=== PATIENT | male | born 1985 | race Caucasian/White ===

== ENCOUNTER 2017-05-06 15:10 | Emergency (ER) | payer MEDICAID, SELFPAY ==
[2017-05-06 15:11] VITALS: BP 155/77; PULSE 100; RESP 15; TEMP 37.2; O2SAT 99; BMI 37.5
[2017-05-06] MEDS: 0.9% Normal Saline 1,000 ML 999 ML IV (15:57)
[2017-05-06 15:58] VITALS: O2SAT 97
[2017-05-06] MEDS: Ketorolac 30 MG/ML Syringe IV (16:04)
[2017-05-06] MEDS: Benzonatate 100 MG Capsule 200 MG PO (16:04)
--- NOTE | 2017-05-06 16:05 | RAD_ITS ---
STUDY: X-RAY CHEST REASON FOR EXAM: Male, 32 years old. Cough. TECHNIQUE: PA and lateral views of the chest. COMPARISON: March 09, 2013. FINDINGS: Telemetry wires overlie the chest. The lungs are clear and expanded. There is no demonstrated pleural abnormality. Normal size heart. Normal mediastinum and payton. Normal visualized pulmonary arteries. Normal visualized aortic arch and descending thoracic aorta. Normal visualized thoracic spine. Normal visualized ribs, clavicles, and shoulders. There is no demonstrated abnormality of the visualized soft tissue structures of the upper abdomen. RAD/Chest PA and Lateral IMPRESSION: No acute cardiopulmonary disease or interval change. Electronically Signed: Chadwick Marquez DO at 16:27 EDT Tel [phone], Service support ,
[2017-05-06 16:08] LABS: Absolute Neutrophil Count 3.6 X10^3/uL (2.0-7.7); Basophil# 0.02 X10^3/uL; Basophil% 0.3 % (0-1); Eosinophil# 0.02 X10^3/uL; Eosinophils% 0.3 % (0-5); Hematocrit 48.8 % (40-54); Hemoglobin 17.3 g/dl (13.0-16.5); Lymphocyte % 29.2 % (19-41); Mean Corp Hgb Conc 35.5 g/gl (32-36); Mean Corpuscular Hgb 29.6 pg (27.0-32.0); Mean Corpuscular Volume 83.4 fL (80-94); Monocyte# 0.95 X10^3/uL; Monocyte% 14.6 % (0-10); Neutrophil % 55.4 % (47-70); Platelet Count 157 K/mm3 (150-450); RBC Distribution Width CV 13.2 % (11.6-14.6); RBC Distribution Width SD 40.7 fl (35.1-43.9); Red Blood Count 5.85 M/mm3 (4.6-6.2); White Blood Count 6.5 K/mm3 (4.4-11.0)
[2017-05-06 16:09] LABS: POSITIVE COUNT NO; POSITIVE DIFFERENTIAL NO; POSITIVE MORPHOLOGY NO
[2017-05-06] MEDS: Ipratropium/Albuterol Sulfate 3 ML AMPUL.NEB INHALATION (16:18)
[2017-05-06 16:19] VITALS: PULSE 81; RESP 18; O2SAT 96
[2017-05-06 16:23] LABS: Anion Gap 8 (5-15); BUN 10 mg/dL (7-18); BUN/Creat Ratio 9.7 RATIO (10-20); Calcium,Total 8.6 mg/dL (8.5-10.1); Chloride 105 mmol/L (98-107); Creatinine, Serum 1.03 mg/dL (0.70-1.30); EST Glomerular Filtration Rate 89 mL/min (>60); Est Glom Filt Rate - Afr Amer 108 mL/min (>60); Estimated Creatinine Clearance 100.53 ml/min; Glucose 75 mg/dL (74-106); Sodium Level 138 mmol/L (136-145)
--- NOTE | 2017-05-06 16:34 | ED.VISSUMM ---
- ER Visit Summary Date of Service: 05/06/17 Chief Complaint: Cough History of Present Illness: The patient is a 32 M with no primary care physician. He reports he has a cough that began 5 days ago. Is nonproductive. He has had subjective fever, chills, and sweats. Ports that he has had moderate to severe shortness of breath. He has been wheezing. He does not have an inhaler. He has diffuse myalgias. He also complains of a headache this 4/10 severity and generalized weakness. He did not get a flu shot this year. Physical Examination: Vitals: Stable. Afebrile. General: Well-nourished and well-developed. Head: Normocephalic atraumatic. HEENT: Pharyngeal erythema. No tonsillar exudate or enlargement. No peritonsillar abscess. Neck: Supple, no lymphadenopathy. No JVD. Nontender. Cardiovascular: Regular rate and rhythm. No murmurs. Respiratory: No respiratory distress. Clear to auscultation bilaterally. Abdominal: Soft, nontender, nondistended, normal bowel sounds. No guarding, rebound, or peritoneal signs. Back: Nontender. Extremities: Nontender, no edema. Skin: Normal color, no rash. Neurologic: Alert and oriented ?3. Cranial nerves II through XII are intact. Normal strength and sensation. Psych: Normal affect. Test Results: Chest x-ray is normal. CBC is marked for hemoglobin 17.3 monocytes of 15. Chem-7 is normal. Influenza is negative. Emergency Department Course and Treatment: Patient was treated with Tessalon Perles p.o. and Toradol IV. He is given albuterol Atrovent aerosol. He is resting comfortably. Treatment Plan: Patient will be discharged albuterol MDI and Tessalon Perles. In[facility]ed to [facility] if not improving. Return to the emergency department for any worsening symptoms. Disposition: To home in improved and stable condition. Impression: 1. URI with bronchospasm. This note was generated with SpinGo dictation software. It may contain incorrect words, spelling, and punctuation that were not noted in review of the chart prior to signing ED Disposition - Plan for ED Patient: Chief Complaint: Shortness of Breath Instructions: ED Upper Resp Infec No Abx Tx Prescriptions: Albuterol Inhaler [Ventolin Hfa] 1 - 2 puff INHALATION Q4H PRN PRN #1 inhaler PRN Reason: Wheezing Benzonatate [Tessalon Perle] 200 mg PO TID PRN PRN #20 capsule PRN Reason: Cough Referrals: Marina Delgado [NON-STAFF] - 1 Week if not improving
[2017-05-06 17:39] VITALS: BP 117/73; PULSE 86; RESP 16; O2SAT 98
== END 2017-05-06 17:39 | disposition home or self-care (01) ==
LOC: ED 17:07
PROVIDERS: Emergency Provider Emergency Medicine
DX: J06.9 Acute upper respiratory infection, unspecified (principal); J98.01 Acute bronchospasm; R30.0 Dysuria; R10.9 Unspecified abdominal pain; K58.9 Irritable bowel syndrome, unspecified; Z98.52 Vasectomy status; Z90.49 Acquired absence of other specified parts of digestive tract; F17.200 Nicotine dependence, unspecified, uncomplicated
CPT/HCPCS: 71046; 80048; 85025; 87804; 94640; 96361; 96374; 99285; J7030; A4216

== ENCOUNTER 2018-01-04 23:00 | Emergency (ER) | payer MEDICAID, SELFPAY ==
[2018-01-04 23:01] VITALS: BP 150/81; PULSE 90; RESP 14; TEMP 36.3; O2SAT 99; BMI 38.9
--- NOTE | 2018-01-04 23:18 | ED.VISSUMM ---
- ER Visit Summary Date of Service: 01/04/18 Chief Complaint: Tingling in left hand History of Present Illness: The patient is a 32 M who presents with tingling in his left hand. He was prescribed doxycycline earlier today for chronic cough of at least 6 weeks. He states he did have a recent negative chest x-ray. He states that after taking a dose of doxycycline he developed tingling in his left hand headache and redness of his left little finger. He also complains of tingling in his penis. He states he had a similar reaction before when he was on multiple antibiotics and the finger and skin on his penis turned black and began to peel. He reports that he was admitted for 5 days. He states he called the on-call nurse who told him that he was having a life-threatening reaction and to go immediately to the emergency department. Physical Examination: Afebrile vitals are normal Moist mucous membranes Heart regular rate and rhythm Lungs clear no stridor no wheezing Abdomen soft There is very minimal erythema of the left fifth finger his sensation is intact to light touch there is no rash no urticaria Test Results: Not indicated Emergency Department Course and Treatment: I reviewed the patient's records. He presented with some similar complaints in 2012 and was diagnosed with an abrasion and discharge. He does not appear to have been admitted at that time. I see no record of a 5-day hospitalization for similar symptoms. I explained that I am not certain that this atypical presentation is related to the antibiotics however given that he has had chronic cough for 6 weeks with negative chest x-ray I feel he can safely just discontinue the antibiotics. He was advised on signs and symptoms to monitor for, conditions which should prompt return here to the emergency department. He vocalized understanding. He is agreeable to plan. He was discharged. Treatment Plan: [] Disposition: Discharge Impression: Possible adverse medication reaction This note was generated with Second Sight dictation software. It may contain incorrect words, spelling, and punctuation that were not noted in review of the chart prior to signing ED Disposition - Plan for ED Patient: Chief Complaint: Allergic Reaction Referrals: Care Physician,No Primary [Primary Care Provider] -
--- NOTE | 2018-01-04 23:21 | ED.DEP ---
ED Disposition - Plan for ED Patient: Chief Complaint: Allergic Reaction Instructions: ED Drug React Adverse Other Referrals: Care Physician,No Primary [Primary Care Provider] - Additional Instructions: Stop doxycycline.
[2018-01-04 23:32] VITALS: BP 149/68; PULSE 91; RESP 20; O2SAT 97
--- NOTE | 2018-01-04 23:45 | ED.RN ---
THIS NURSE REVIEWED D/C INSTRUCTIONS WITH PT. PT VERBALIZED UNDERSTANDING OF INSTRUCTIONS. PT DENIES FURTHER NEEDS OR QUESTIONS AT THIS TIME. PT AMBULATES FROM ROOM ON OWN WITHOUT ASSISTANCE FROM STAFF. AFTER PT D/C, PT MOTHER CALLED THE ER YELLING AND CURSING ABOUT THE PT BEING DISCHARGED AND NOT BEING OBSERVED. THE MOTHER WAS INFORMED SEVERAL TIMES THAT WE ARE UNABLE TO RELEASE INFORMATION ABOUT THE PT. MOTHER INFORMED THIS NURSE THAT SHE WOULD BE CONTACTED HER TEST EQUIPMENT MECHANIC.
== END 2018-01-04 23:47 | disposition home or self-care (01) ==
LOC: ED 23:25
PROVIDERS: Emergency Provider Emergency Medicine
DX: R20.2 Paresthesia of skin (principal); R05 Cough; R51 Headache; K58.9 Irritable bowel syndrome, unspecified; Z90.49 Acquired absence of other specified parts of digestive tract; Z72.0 Tobacco use
CPT/HCPCS: 99282

== ENCOUNTER 2018-05-01 17:04 | Emergency (ER) | payer MEDICAID, SELFPAY ==
[2018-05-01 17:04] VITALS: BP 113/69; PULSE 89; RESP 20; TEMP 36.6; O2SAT 99; BMI 36.4
--- NOTE | 2018-05-01 17:46 | ED.VISSUMM ---
- ER Visit Summary Date of Service: 05/01/18 Chief Complaint: Chills, night sweats, bad sore throat History of Present Illness: The patient is a 33 M who reports he has been ill for the past 4-5 days with sore throat. He feels that his neck is closing down. He feels his tonsils are huge. He complains of subjective fever with chills and night sweats. He denies headache. Denies rhinorrhea or postnasal drainage. Denies cough. Does complain of body aches. He also reports fatigue. He states he has had poor p.o. intake over the past 24-48 hours. He is lightheaded with standing. He complains of dry mouth and dry tongue. He reports increased thirst. He reports decreased urine output. He has not noted a rash. He states he was seen in urgent care 4-5 days ago and rapid strep was negative. He was told he has a viral infection because the rapid strep was negative. Past medical history of depression. He lives with his parents. His parents are not ill. Physical Examination: Patient appears ill but not toxic. Vital signs noted. Head is atraumatic no cephalic. Pupils equal round reactive paradoxic muscle intact. Sclerae anicteric. Conjunctive is slightly injected. There is no drainage. TMs are normal. Nares patent with no discharge. Bilateral exudative tonsillitis. Uvula midline. Trachea midline. There is no stridor. Shotty anterior cervical lymph nodes noted. Heart is regular without murmur, gallop or rub her lungs are clear to auscultation. There is no paraspinal megaly. There is no tenderness left upper quadrant. Abdomen is otherwise negative. No rash or skin lesions noted. He is alert oriented x3. Motor is 5/5. Sensations intact. DTRs are symmetric. Cranial 2 through 12 intact. Test Results: Rapid strep test is negative. CBC is unremarkable with no atypical lymphocytes to suggest mononucleosis. Renal function is normal. Emergency Department Course and Treatment: Rapid strep was obtained. Since he reports decreased p.o. intake clinically is dehydrated IV was established and basic metabolic panel was obtained to assess electrolytes, anion gap and renal function. He was treated with Decadron for his exudative tonsillitis. Will obtain CBC looking for atypical lymphocytes because this may represent mononucleosis. Treatment Plan: Patient feels better after IV Decadron and 1 L of normal saline. He appears better. Disposition: Discharged home in stable and improved condition Impression: Exudative tonsillitis, viral etiology This note was generated with [employer] Blaze dictation software. It may contain incorrect words, spelling, and punctuation that were not noted in review of the chart prior to signing ED Disposition - Plan for ED Patient: Disposition: Home or Assisted Living Instructions: ED Tonsillitis Referrals: Markel Pressley MD [Primary Care Provider] - 1 Week if not improving Additional Instructions: Drink plenty of fluids. Salt water gargles 4-6 times a day. Return if there is change in voice, difficulty swallowing or breathing or difficulty opening or closing her mouth completely.
[2018-05-01] MEDS: 0.9% Normal Saline 1,000 ML 1000 ML IV (17:54)
[2018-05-01 18:09] LABS: Absolute Lymphocyte Count 2.22 X10^3/ul (0.83-4.51); Absolute Neutrophil Count 7.6 X10^3/uL (2.0-7.7); Basophil# 0.04 X10^3/uL; Basophil% 0.4 % (0-1); Eosinophil# 0.03 X10^3/uL; Eosinophils% 0.3 % (0-5); Hematocrit 49.6 % (40-54); Hemoglobin 16.8 g/dl (13.0-16.5); Lymphocyte # 2.22 X10^3/ul (4.0); Lymphocyte % 19.8 % (19-41); Mean Corp Hgb Conc 33.9 g/gl (32-36); Mean Corpuscular Hgb 28.9 pg (27.0-32.0); Mean Corpuscular Volume 85.4 fL (80-94); Mean Platelet Vol. 11.8 fl (6.2-12.0); Monocyte# 1.31 X10^3/uL; Monocyte% 11.7 % (0-10); Neutrophil # 7.57 X10^3/uL (2.7-7.7); Neutrophil % 67.6 % (47-70); Platelet Count 162 K/mm3 (150-450); RBC Distribution Width CV 13.1 % (11.6-14.6); RBC Distribution Width SD 40.8 fl (35.1-43.9); Red Blood Count 5.81 M/mm3 (4.6-6.2); White Blood Count 11.2 K/mm3 (4.4-11.0)
[2018-05-01 18:14] LABS: POSITIVE COUNT NO; POSITIVE DIFFERENTIAL NO; POSITIVE MORPHOLOGY NO
[2018-05-01 18:20] LABS: Anion Gap 7 (5-15); BUN 9 mg/dL (7-18); Calcium,Total 8.7 mg/dL (8.5-10.1); Chloride 104 mmol/L (98-107); Creatinine, Serum 1.12 mg/dL (0.70-1.30); EST Glomerular Filtration Rate 81 mL/min (>60); Est Glom Filt Rate - Afr Amer 98 mL/min (>60); Estimated Creatinine Clearance 91.61 ml/min; Glucose 86 mg/dL (74-106); Sodium Level 135 mmol/L (136-145)
[2018-05-01 19:10] VITALS: RESP 18; O2SAT 98
== END 2018-05-01 19:11 | disposition home or self-care (01) ==
PROVIDERS: Emergency Provider Emergency Medicine; Family Provider Family Medicine; PCP Family Medicine
DX: J03.80 Acute tonsillitis due to other specified organisms (principal); B97.89 Other viral agents as the cause of diseases classified elsewhere; E86.0 Dehydration; F32.9 Major depressive disorder, single episode, unspecified; Z79.899 Other long term (current) drug therapy
CPT/HCPCS: 80048; 85025; 87880; 96361; 96374; 99283; J7030

== ENCOUNTER → 2018-05-06 15:57 | Outpatient (CLI) | payer MEDICAID, SELFPAY ==
[2018-05-01 17:04] VITALS: BMI 36.4
== END ==
PROVIDERS: Family Provider Family Medicine; PCP Family Medicine; Referring Provider Otolaryngology; Visit Provider Otolaryngology
DX: J02.9 Acute pharyngitis, unspecified (principal)
CPT/HCPCS: 87070

== ENCOUNTER → 2018-09-13 | Outpatient (CLI) | payer MEDICAID, SELFPAY ==
[2018-09-13 18:10] LABS: Follicle Stimulating Hormone 4.2 mIU/mL
== END | disposition home or self-care (01) ==
PROVIDERS: Family Provider Family Medicine; PCP Family Medicine
DX: E29.1 Testicular hypofunction (principal)
CPT/HCPCS: 36415; 83001

== ENCOUNTER 2020-06-13 07:27 | Outpatient (RCR) | payer MEDICAID, SELFPAY | END 2020-07-30 23:59 | LOC: IMMUN 07:27 | PROVIDERS: PCP Family Medicine; Referring Provider Family Medicine; Visit Provider Family Medicine | DX: Z23 Encounter for immunization (principal) | CPT/HCPCS: 0001A; 0002A; 91300 ==

== ENCOUNTER 2021-07-13 08:20 | Emergency (ER) | payer MEDICAID, SELFPAY ==
[2021-07-13 08:21] VITALS: BP 126/86; PULSE 88; RESP 17; TEMP 36; O2SAT 96; BMI 37.7
--- NOTE | 2021-07-13 09:03 | CT_ITS ---
STUDY: CT ABDOMEN AND PELVIS WITH CONTRAST REASON FOR EXAM: Male, 36 years old. PAIN RADIATION DOSAGE (If Supplied By Facility): CTDIvol = ( 14.88 ) mGy, DLP = ( 1178.67 ) mGycm TECHNIQUE: Transaxial images were obtained from the dome of the diaphragm to the symphysis pubis without oral contrast. Oral and amp; IV Gastrografin and amp; 100mL Isovue-370 was administered. Sagittal and coronal images were reconstructed. Individualized dose optimization techniques were used for this CT. COMPARISON: 03/10/2013. FINDINGS: The visualized lung bases are unremarkable. The visualized portions of the heart are within normal limits. Normal liver. Normal gallbladder and extrahepatic biliary system. Normal spleen. Normal pancreas. Normal bilateral adrenal glands. Normal right kidney. 2 cm cyst in the midpole of the left kidney new since the previous exam. Normal visualized stomach. Normal small intestine. Diverticulosis of the sigmoid and distal descending colon. No definite acute diverticulitis. The appendix is visualized and appears normal. Normal abdominal aorta. Normal inferior vena cava. Normal retroperitoneum. Normal urinary bladder. Mild thickening of the subcutaneous fat of the abdominal wall at the level of the of the umbilicus. No demonstrated acute osseous changes. CT/Abdomen/Pelvis WITH Contrast IMPRESSION: 1. Diverticulosis of the sigmoid colon without definite acute diverticulitis. 2. Otherwise no focal acute inflammatory process. Electronically Signed: Harlan Gaming MD at 11:46 EDT ,
[2021-07-13 12:15] LABS: AST(SGOT) 35 U/L (15-37); Absolute Lymphocyte Count 2.52 X10^3/uL (0.83-4.51); Absolute Neutrophil Count 9.7 X10^3/uL (2.0-7.7); Alanine Aminotransfer ALT/SGPT 55 U/L (16-61); Alkaline Phosphatase 115 U/L (45-117); Anion Gap 4 (5-15); BUN 9 mg/dL (7-18); BUN/Creat Ratio 8.7 RATIO (10-20); Basophil# 0.04 X10^3/uL; Basophil% 0.3 % (0-1); Calcium,Total 9.4 mg/dL (8.5-10.1); Chloride 107 mmol/L (98-107); Creatinine, Serum 1.04 mg/dL (0.70-1.30); EST Glomerular Filtration Rate 86 mL/min (>60); Eosinophil# 0.12 X10^3/uL; Eosinophils% 0.9 % (0-5); Est Glom Filt Rate - Afr Amer 104 mL/min (>60); Estimated Creatinine Clearance 95.91 ml/min; Globulin 3.9 g/dL (2.2-4.2); Glucose 89 mg/dL (74-106); Hematocrit 45.9 % (40-54); Hemoglobin 15.8 g/dL (13.0-16.5); Lactic Acid 0.6 mmol/L (0.4-1.9); Lipase 72 U/L (73-393); Lymphocyte # 2.52 X10^3/ul (0.83-4.51); Lymphocyte % 18.7 % (19-41); Mean Corp Hgb Conc 34.4 g/dL (32-36); Mean Corpuscular Hgb 28.9 pg (27.0-32.0); Mean Corpuscular Volume 83.9 fL (80-94); Mean Platelet Vol. 11.8 fl (6.2-12.0); Monocyte# 1.07 X10^3/uL; NRBC Flagged by Analyzer 0 % (0-5); Neutrophil # 9.66 X10^3/uL (2.7-7.7); Neutrophil % 71.8 % (47-70); Platelet Count 219 K/mm3 (150-450); Potassium 4.3 mmol/L (3.5-5.1); Protein, Total 7.9 g/dL (6.4-8.2); RBC Distribution Width CV 12.6 % (11.6-14.6); RBC Distribution Width SD 38.5 fl (35.1-43.9); Red Blood Count 5.47 M/mm3 (4.6-6.2); Sodium Level 139 mmol/L (136-145); White Blood Count 13.5 K/mm3 (4.4-11.0)
--- NOTE | 2021-07-13 12:23 | EDS_ITS ---
HPI HPI - GI History of Present Illness Chief Complaint: Abd Pain Informant: patient Abdominal Pain/Flank Pain Onset: Days (5) Context: Gradual Onset Timing: Continuous Quality: Sharp Location: RLQ and LLQ Worsened by: - (Palpation) Relieved by: Nothing Nausea/Vomiting/Emesis GI Symptom: Positive for Nausea; Negative for Vomiting Diarrhea/Melena/Hematochezia GI Symptom: Negative for Diarrhea, Melena and Hematochezia Associated Symptoms Associated Symptoms: Negative for Dysuria, Frequency and Hematuria Narrative Narrative: Patient presents with abdominal pain that has been getting worse over the last 5 days. Patient states he has been on clindamycin for cellulitis of his abdomen. Patient states his pain is over the lower abdomen and umbilical area. Patient describes his pain as sharp. Patient states it is worse whenever anything touches it. Patient admits to nausea but denies any vomiting. Patient denies any diarrhea, melena, or hematochezia. Patient denies any dysuria, hematuria, or frequency. Patient admits to some subjective fevers and chills and sweats. PFSH PFSH Medical History Anxiety IBS (irritable bowel syndrome) Home Medications clindamycin HCl 300 mg PO Q6H 07/13/21 [History Last Taken Unknown] hydrocodone-acetaminophen 1 tab PO Q6H PRN PRN 3 Days #10 tablet 07/13/21 [Rx Last Taken Unknown] hydroxyzine pamoate 50 mg PO PRN PRN 07/13/21 [History Last Taken Unknown] Allergy/AdvReac Type Severity Reaction Status Date / Time cephalexin [From Keflex] Allergy Other Verified 07/13/21 08:20 morphine Allergy Hives Verified 07/13/21 08:20 Penicillins Allergy Hives Verified 07/13/21 08:20 prednisone Allergy Hives Verified 07/13/21 08:20 doxycycline AdvReac Other Verified 07/13/21 08:20 Social History Smoking Status: Current every day smoker tobacco type: e-cigarettes ROS ROS ED Constitutional Constitutional ED: Reports chills, fever(s), subjective and sweats Eyes Eyes: Denies blurry vision or change in vision ENT ENT ED: Denies rhinorrhea or sore throat Cardiovascular Cardiovascular: Reports chest pain; Denies palpitations Respiratory/Chest Respiratory/Chest: Denies cough or dyspnea Gastrointestinal Gastrointestinal: Reports abdominal pain and nausea; Denies diarrhea or vomiting Genitourinary Genitourinary ED: Denies dysuria or hematuria Musculoskeletal Musculoskeletal: Reports back pain; Denies neck pain Integumentary Reports rash; Denies abscess Neurologic Neurologic: Denies headache(s) or weakness Allergic/Immunologic Allergic/Immunologic ED: Denies mouth swelling or urticaria EXAM Physical Exam Const Vital Signs: 07/13/21 08:21 Temperature 96.8 F L Temperature Source Temporal Pulse Rate 88 Respiratory Rate 17 Blood Pressure 126/86 H Blood Pressure Mean 99 Pulse Ox 96 Oxygen Delivery Method Room Air Positive well nourished and well developed General Appearance ED: well developed HEENT Reports moist mucous membranes Neck supple and no JVD Resp normal respiratory effort and clear to auscultation bilaterally Cardio regular rate, regular rhythm and no murmurs GI normal to inspection, nondistended, normoactive bowel sounds and non-distended Auscultation: normoactive bowel sounds Palpation: soft and tender LLQ, RLQ, periumbilical and suprapubic; Negative for guarding or rebound tenderness present Extremity normal to inspection General Extremety ED: Negative for edema or tenderness General Extremity: Negative for edema Neuro oriented x3, CN's II-XII intact bilaterally and no sensory deficits noted Sensorium / Orientation: alert Motor Exam: strength 5/5 throughout Psych mental status grossly normal Skin no rashes or lesions noted Skin Narrative: There is some erythema and warmth over the lower abdomen and periumbilical area. There is no fluctuance. There is no discharge or drainage. There is no evidence of any abscess. There is tenderness to palpation over this area. MDM MDM MDM Narrative Medical decision making narrative: Patient was given IV fluids and Zofran here. CBC shows a mild leukocytosis of 13.5. Comprehensive metabolic profile was within normal limits. Lactate was normal. Lipase was normal. Urinalysis does not show any evidence of urinary tract infection or hematuria. CT scan of the abdomen pelvis was obtained. There is diverticulosis but no evidence of dive rticulitis. There is some inflammatory changes in the abdominal wall. There is no evidence of any abscess formation. This was interpreted by the radiologist and reviewed by myself. Patient was given a dose of Ativan because he started feeling anxious. Patient is feeling better on reevaluation. Patient was advised of his findings. Patient was instructed to follow-up with his primary care physician in 5 to 7 days. Patient was instructed to continue his clindamycin as prescribed. Patient was given a prescription for a short course of [place]. Patient was instructed to return if worse in any way. Patient understood and was agreeable with the plan. All questions were answered. Lab Data Attestation: I reviewed the patient's lab results. Labs: Laboratory Results - last 24 hr 07/13/21 07/13/21 07/13/21 09:15 09:15 09:15 WBC 13.5 H RBC 5.47 Hgb 15.8 Hct 45.9 MCV 83.9 MCH 28.9 MCHC 34.4 RDW Std Deviation 38.5 RDW Coeff of Audra 12.6 Plt Count 219 MPV 11.8 Immature Gran % (Auto) 0.300 Neut % (Auto) 71.8 H Lymph % (Auto) 18.7 L [place] % (Auto) 8.0 Eos % (Auto) 0.9 Baso % (Auto) 0.3 Absolute Neuts (auto) 9.7 H Absolute Lymphs (auto) 2.52 Nucleated RBC % 0 Sodium 139 Potassium 4.3 Chloride 107 Carbon Dioxide 28.0 Anion Gap 4 L BUN 9 Creatinine 1.04 Estim Creat Clear Calc 95.91 Est GFR (MDRD) Af Amer 104 Est GFR (MDRD) Non-Af 86 BUN/Creatinine Ratio 8.7 L Glucose 89 Lactic Acid 0.6 Calcium 9.4 Total Bilirubin 0.80 AST 35 ALT 55 Alkaline Phosphatase 115 Total Protein 7.9 Albumin 4.0 Globulin 3.9 Albumin/Globulin Ratio 1.0 Lipase 72 L Discharge Plan Triage Chief Complaint: Abd Pain ED Provider: Efrem Reece Dx/Rx/DC Orders Clinical Impression: Abdominal wall cellulitis Instructions: ED Cellulitis Prescriptions: New hydrocodone-acetaminophen [hydrocodone-acetaminophen] 1 TABLET tablet 1 tab PO Q6H PRN PRN (Reason: Pain) 3 Days Qty: 10 RF: 0 No Action clindamycin HCl 300 mg capsule 300 mg PO Q6H RF: 0 hydroxyzine pamoate 50 mg capsule 50 mg PO PRN PRN (Reason: Anxiety) RF: 0 Primary Care Provider: Markel Pressley Referrals: Markel Pressley MD [Primary Care Provider] - 3-5 Days Disposition Disposition: Home, Self Care
[2021-07-13 12:58] VITALS: PULSE 67; O2SAT 98
[2021-07-13 14:23] LABS: Bacteria 0 SEEN /hpf (None Seen); Color, Urine Yellow (Yellow); Glucose, Dipstick Normal (Normal); Ketone-Dipstick Negative (Negative); Mucous, Urine 0 SEEN /hpf (<or=2+); Nitrite-Dipstick Negative (Negative); Occult Blood-Urine 10 /ul (Negative); Protein-Dipstick 15 mg/dl (Negative); Red Blood Cells-Urine 0 SEEN /hpf (0-5); Squamous Epithelial Cells - UA 0 SEEN /hpf (0-5); Urine Bilirubin Dipstick Negative (Negative); Urine Clarity Clear (Clear); Urine Urobilinogen Normal (Normal)
[2021-07-13 14:24] LABS: Leukocyte Esterase-Dipstick Negative /ul (Negative); White Blood Cells 0-5 SEEN /hpf (0-5)
== END 2021-07-13 12:58 | disposition home or self-care (01) ==
PROVIDERS: Emergency Provider Emergency Medicine; PCP Family Medicine; Visit Provider Emergency Medicine
DX: L03.311 Cellulitis of abdominal wall (principal); K57.30 Diverticulosis of large intestine without perforation or abscess without bleeding; F41.9 Anxiety disorder, unspecified; K58.9 Irritable bowel syndrome, unspecified; F17.290 Nicotine dependence, other tobacco product, uncomplicated
CPT/HCPCS: 74177; 80053; 81001; 83605; 83690; 85025; 87040; 96361; 96374; 96375; 99282; 99284; J7030; Q9967; A4216; J2405

== ENCOUNTER 2022-04-22 17:14 | Emergency (ER) | payer OTHER, MEDICAID, SELFPAY ==
[2022-04-22 17:23] VITALS: BP 137/91; PULSE 88; RESP 26; TEMP 36.7; O2SAT 96
[2022-04-22 17:34] VITALS: BMI 39.2
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
[2022-04-22] MEDS: fentaNYL 100 MCG/2 ML Ampul 50 MCG IM (18:31)
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
--- NOTE | 2022-04-22 18:50 | RAD_ITS ---
EXAM: XR LEFT HIP WITH PELVIS WHEN PERFORMED, 2 OR 3 VIEWS CLINICAL INDICATION: left TECHNIQUE: Two or three views of the left hip with pelvis when performed. This report was created using [employer] report generation technology. COMPARISON: None. FINDINGS: BONES/JOINTS: Unremarkable. No displaced fracture. No destructive or sclerotic lesions. Note that overlapping bowel shadows may however obscure fine detail. Sacroiliac joint is unremarkable. No widening of the pubic symphysis. The articular structures are unremarkable. SOFT TISSUES: Unremarkable. No soft tissue swelling or gas. RAD/HIP, UNI W/ Pelvis 2-3 Views IMPRESSION: No evidence of displaced pelvic or hip fracture. Electronically Signed: Marvin Almendarez MD at 19:17 EST ,
[2022-04-22 20:09] VITALS: RESP 16
== END 2022-04-22 21:10 | disposition home or self-care (01) ==
PROVIDERS: Emergency Provider Emergency Medicine; PCP Family Medicine; Visit Provider Emergency Medicine
DX: S06.0X0A Concussion without loss of consciousness, initial encounter (principal); M54.9 Dorsalgia, unspecified; S20.20XA Contusion of thorax, unspecified, initial encounter; M54.32 Sciatica, left side; S16.1XXA Strain of muscle, fascia and tendon at neck level, initial encounter; V49.40XA Driver injured in collision with unspecified motor vehicles in traffic accident, initial encounter; F17.290 Nicotine dependence, other tobacco product, uncomplicated
CPT/HCPCS: 70450; 71046; 72125; 72131; 73502; 96372; 99282

== ENCOUNTER → 2022-11-30 | Outpatient (CLI) | payer OTHER, MEDICAID, SELFPAY ==
--- NOTE | 2022-11-30 18:34 | STRESSREP ---
Stress Test Report Exercise stress test. 37-year-old man with a history of chest pain Stress protocol: Resting EKG demonstrates normal sinus rhythm with a rate of 73 bpm resting blood pressure is 110/82 mmHg. The patient exercised according to the regular [facility] protocol for a total duration of 7 minutes and 15 seconds attaining a maximum heart rate of 160 bpm which was 86% of maximum predicted heart rate; the maximum workload was 10.1 metabolic equivalents. At rest there were no ST or T wave changes noted to suggest ischemia and at peak exercise upsloping ST changes only were noted which did not meet the criteria for ischemia. No clinical angina was noted the test was terminated due to the target heart rate being achieved/fatigue. The peak blood pressure was 190/62 mmHg. Rate-pressure product was 30,400. Conclusion: Normal exercise stress test with no EKG criteria for ischemia and no arrhythmias noted. Good functional aerobic capacity.
== END | disposition home or self-care (01) ==
LOC: CVS 09:44
PROVIDERS: PCP Family Medicine; Referring Provider Nurse Practitioner Primary Care; Visit Provider Nurse Practitioner Primary Care
DX: R07.9 Chest pain, unspecified (principal)
CPT/HCPCS: 93017

== ENCOUNTER 2023-01-26 18:31 | Emergency (ER) | payer MEDICAID, SELFPAY ==
[2023-01-26 18:32] VITALS: BP 152/101; PULSE 80; RESP 12; TEMP 36.5; O2SAT 99; BMI 43.2
--- NOTE | 2023-01-26 18:50 | EX.ED.UPPERE ---
HPI History of Present Illness HPI Narrative: Patient presents with laceration to his right index finger that occurred today. Patient states he was cutting a pipe when he accidentally slipped and cut his finger. Patient is left-hand dominant. Patient is unsure of his last tetanus. Patient describes his pain as sharp and aching. Patient states it is better when he puts pressure over the wound. Patient states it is worse when he lets go over the pressure. Patient denies any paresthesias or weakness. Patient denies any other injuries. 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 Efrem Reece, DO) Anxiety IBS (irritable bowel syndrome) Tobacco use disorder Home Medications hydroxyzine pamoate 100 mg capsule 100 mg PO DAILY 04/22/22 [History Last Taken Unknown] lorazepam 0.5 mg tablet 0.5 mg PO DAILY PRN PRN Anxiety 04/22/22 [History Last Taken Unknown] oxycodone-acetaminophen 5 mg-325 mg tablet 1 tab PO Q6H PRN PRN Pain 3 days #12 TABLETS 04/22/22 [Rx Last Taken Unknown] paroxetine HCl 30 mg tablet 40 mg PO DAILY 04/22/22 [History Last Taken Unknown] trazodone 100 mg tablet 50 mg PO QHS 04/22/22 [History Last Taken Unknown] clindamycin HCl 300 mg capsule (Cleocin HCl) 300 mg PO Q6H #40 CAPSULES 01/26/23 [Rx Last Taken Unknown] paroxetine HCl 40 mg tablet 40 mg PO DAILY 01/26/23 [History Last Taken Unknown] Allergy/AdvReac Type Severity Reaction Status Date / Time cephalexin [From Keflex] Allergy Other Verified 01/26/23 18:32 morphine Allergy Hives Verified 01/26/23 18:32 Penicillins Allergy Hives Verified 01/26/23 18:32 prednisone Allergy Hives Verified 01/26/23 18:32 doxycycline AdvReac Other Verified 01/26/23 18:32 Surgical History (Updated 01/26/23 @ 19:[address] Efrem Reece DO) Hx of cholecystectomy Social History Smoking Status: Current every day smoker tobacco type: e-cigarettes ROS ROS ED Constitutional Constitutional ED: Denies chills or fever(s) Eyes Eyes: Denies blurry vision or change in vision ENT ENT ED: Denies rhinorrhea or sore throat Cardiovascular Cardiovascular: Denies chest pain or palpitations Respiratory/Chest Respiratory/Chest: Denies cough or dyspnea Gastrointestinal Gastrointestinal: Denies nausea or vomiting Genitourinary Genitourinary ED: Denies dysuria or hematuria Musculoskeletal Musculoskeletal: Denies back pain or neck pain Integumentary Denies abscess or rash Neurologic Neurologic: Denies headache(s) or weakness Allergic/Immunologic Allergic/Immunologic ED: Denies mouth swelling or urticaria EXAM Physical Exam Const Vital Signs: 01/26/23 18:32 Temperature 97.7 F L Temperature Source Temporal Pulse Rate 80 Respiratory Rate 12 Blood Pressure 152/101 H Blood Pressure Mean 118 Pulse Ox 99 Oxygen Delivery Method Room Air Positive well nourished and well developed General Appearance ED: well developed and NAD HEENT Reports moist mucous membranes Neck full ROM and supple Extremity Extremity Narrative: There is a 2.5 cm full-thickness linear laceration over the dorsal aspect of the proximal phalanx of the right index finger. There is moderate gapping of the wound margins. There is no tendon lacerations noted. There are no foreign bodies noted. There is mild bleeding. There are no foreign bodies noted. Strength is 5/5 and flexion and extension of the MP, PIP, and DIP joints. Sensation was intact to light touch in all digits. Capillary refill was less than 2 seconds in all digits. Neuro oriented x3, CN's II-XII intact bilaterally, moves all extremities, no focal motor deficits and no sensory deficits noted Sensorium / Orientation: alert Motor Exam: strength 5/5 throughout Psych mental status grossly normal Skin Skin Narrative: There is a 2.5 cm full-thickness linear laceration over the dorsal aspect of the proximal phalanx of the right index finger. There is moderate gapping of the wound margins. There is no foreign body noted. There is no tendon laceration noted. MDM MDM MDM Narrative Medical decision making narrative: Smoking cessation was discussed. Patient was given a tetanus booster here. Patient was given a dose of clindamycin here. The wound was cleaned and irrigated with copious amounts of normal saline. The wound was anesthetized with 1% plain lidocaine locally. The wound was closed with 5 simple interrupted # 4-0 nylon sutures under sterile technique. Patient tolerated the procedure well. Bacitracin dressing was applied. Patient was given a prescription for clindamycin. Patient was instructed to keep the wound clean and dry. Patient was instructed to follow-up with his primary care physician in 5 to 7 days for wound recheck and suture removal. Patient understood and was agreeable with the plan. All questions were answered. Discharge Plan Triage Chief Complaint: Laceration ED Provider: Efrem Reece Dx/Rx/DC Orders Clinical Impression: Tobacco use disorder, Laceration of right index finger Instructions: ED Laceration, Hand: All Closures Prescriptions: New clindamycin HCl [Cleocin HCl] 300 mg capsule 300 mg PO Q6H Qty: 40 0RF No Action hydroxyzine pamoate 100 mg capsule 100 mg PO DAILY Patient Comments: Take 1 capsule by mouth three times daily as needed. lorazepam 0.5 mg tablet 0.5 mg PO DAILY PRN PRN (Reason: Anxiety) Patient Comments: Take 1 tablet by mouth once daily as needed for up to 30 days. trazodone 100 mg tablet 50 mg PO QHS Patient Comments: Take 1 tablet by mouth daily at bedtime. paroxetine HCl 30 mg tablet 40 mg PO DAILY Patient Comments: TAKE 1 TABLET BY MOUTH ONCE DAILY oxycodone-acetaminophen [oxycodone-acetaminophen] 5-325 mg tablet 1 tab PO Q6H PRN PRN (Reason: Pain) 3 Days Qty: 12 0RF paroxetine HCl 40 mg tablet 40 mg PO DAILY Patient Comments: TAKE 1 TABLET BY MOUTH ONCE DAILY Primary Care Provider: Markel Pressley Referrals: Markel Pressley MD [Primary Care Provider] - 7 Days for suture removal Disposition Disposition: Home, Self Care
[2023-01-26] MEDS: Lidocaine 1% (20 ml mdv) 20 ML Vial INFILT (19:11)
[2023-01-26] MEDS: Clindamycin HCl 150 MG Capsule 300 MG PO (19:11)
[2023-01-26] MEDS: Diphth,Pertuss(Acell),Tet Vac 0.5 ML Vial IM (19:11)
== END 2023-01-26 20:26 | disposition home or self-care (01) ==
PROVIDERS: Emergency Provider Emergency Medicine; PCP Family Medicine; Visit Provider Emergency Medicine
DX: S61.210A Laceration without foreign body of right index finger without damage to nail, initial encounter (principal); W26.8XXA Contact with other sharp object(s), not elsewhere classified, initial encounter; Z23 Encounter for immunization; F41.9 Anxiety disorder, unspecified; F17.290 Nicotine dependence, other tobacco product, uncomplicated; Z79.899 Other long term (current) drug therapy
CPT/HCPCS: 12001; 90715; 99283

== ENCOUNTER 2023-04-18 20:15 | Emergency (ER) | payer MEDICAID, SELFPAY ==
[2023-04-18 20:16] VITALS: BP 147/82; PULSE 85; RESP 16; TEMP 36.4; O2SAT 97; BMI 39.2
--- NOTE | 2023-04-18 20:29 | RAD_ITS ---
INDICATION: fall, pain EXAMINATION/TECHNIQUE: X-RAY - XR Spine Lumbar 2 or 3 Views COMPARISON: No relevant prior comparison study available FINDINGS: VERTEBRAE: Preserved vertebral body height. No fracture. No spondylolisthesis. Preservation of the normal lumbar lordosis. No significant facet arthropathy. DISCS: Disc spaces are maintained. INCLUDED ABDOMEN: Included bowel gas pattern is non-obstructive. RAD/Lumbar Spine 2 or 3 Views IMPRESSION: No evidence of lumbar spinal fracture or spondylolisthesis. Electronically Signed: Hudson Hall MD at 21:17 EST ,
--- OUTSIDE RECORDS SUMMARY | 2023-04-18 20:42 | XMS RPT_ITS | CCD ---
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 Maternal Grandfather Cancer Maternal Grandfather leukemia Ischemic Heart Disease Paternal Grandfather Fatal NH age 37 Psychiatry Sister anxiety/panic The review of systems data was entered by the nurse and reviewed by nm Nursing Notes: Cheryl Trinh RN 10/19/2022 9:24 AM Signed REVIEW OF SYSTEMS: General: The patient NOTES fatigue, denies weight loss, denies weight gain, denies feeling hot, and denies feelings of cold. Eyes: The patient denies glaucoma, denies eye injury/surgery, does not wear glasses or contacts. Ear/Nose/Throat: The patient NOTES allergies, denies hayfever, denies ear infections, and denies bloody noses. Cardiovascular: The patient denies chest pain, denies heart disease, denies high blood pressure,denies cardiac stent, denies prior heart attack, denies irregular heart beat, NOTES high cholesterol, denies poor circulation, denies heart failure, other cardiac issues, denies claudication, denies cold feet, denies peripheral arterial stent. Respiratory: The patient denies tuberculosis, denies pneumonia, denies frequent cough, denies pulmonary embolism, denies shortness of breath, and denies coughing up blood. Gastrointestinal: The patient denies difficulty swallowing, NOTES acid reflux, denies ulcers, denies vomiting, denies jaundice/hepatitis, NOTES gallbladder problems, denies black or tarry stools, denies hemorrhoids, denies bleeding from rectum, denies diverticulitis, denies constipation, NOTES diarrhea, denies loss of stool control, and denies hernias. Kidney/Bladder: The patient denies kidney stones, denies urine infections, and denies bloody urine. Skin: The patient denies a history of skin cancer, denies bleeding/changing moles, and denies a history of skin rash. Neurologic: The patient denies a history of epilepsy/convulsions, denies headaches, denies head/spinal injuries, and denies stroke/TIA. Psychiatric: The patient NOTES psychiatric medications, denies depression, and denies voices, denies substance abuse. Endocrine: The patient denies thyroid disorders, denies diabetes, and denies hormonal problems. Hematologic: The patient denies a history of bruising, denies bleeding, and denies anemia, denies blood clots. Infections: The patient denies a history of measles and mumps, denies rheumatic fever, and denies sexually transmitted diseases. Musculoskeletal: The patient NOTES back pain/injury, denies back problems, denies sciatica, denies knee/foot trouble, denies arthritis, or denies gout. When was patient's last Mammogram screening? N/A Last Colonoscopy: 11/13/2015 Cheryl Trinh RN PHYSICAL EXAMINATION: General: The patient is 37 year old male, well nourished, well hydrated in no acute distress. The patient is oriented to time, place, and person. VITALS: Blood pressure 128/80, pulse 97, temperature 36.1 C (97 F), height 172.7 cm (5' 8 ), weight 120.8 kg (266 lb 6.4 oz), SpO2 97 %. Body mass index is 40.51 kg/m . Head: Normal cephalic, atraumatic Eyes: pupils are equally round, sclera are clear/anicteric Neck is supple with no tracheal deviation Cardiac: normal heart sounds, regular Respiratory: normal breath sounds, normal respiratory excursion and pattern. Abdominal exam: benign Extremities: no clubbing, cyanosis or edema. Neuro: non focal Psych: normal mood Assessment IMPRESSION: history of colon polyps, chest pain PLAN: I have discussed the above with the patient. I have offered colonoscopy , possible biopsies I have explained the procedure to the patient. I have counseled the patient as to the risks of the procedure, including but not limited to: infection, bleeding, injury to any intrabdominal organs such as liver/spleen, perforation of the GI tract, inability to complete the procedure, complications of anesthesia, etc. - the patient understands. The patient wishes to proceed. I have answered all questions to the patient s satisfaction and the patient has no further questions. My clinic staff has educated the patient as to the colon cleansing regimen and I have prescribed Golytely for the colon cleansing solution. The patient may be scheduled for the procedure at [facility]. - however patient is pending stress ECHO and this should be done prior to procedure, patient acknowledges this. Diagnoses: (Z86.010) Hx of colonic polyps I have confirmed and edited as necessary, the PFSH and ROS obtained by others. Consultation requested by Dary Whitakerlogdevan for an opinion regarding patient's history of colon polyps. My final recommendations will be communicated back to the requesting physician by way of shared Medical record or letter to requesting physician via US mail. Return to Clinic: The patient is presently pending cardiac evaluation with stress ECHO. Colonoscopy to be scheduled pending results. Medical Decision Making: Problems: Low: Stable chronic illness Risk: Low: Low risk from testing/treatment Medical Decision Making Level: 3 - Low Linda Whatley MD documented in this encounter [facility] 10-15-2022 Miscellaneous Notes Phoned patient and message left to return call for results or view via [facility]. ----- Message from Samuel Pressley MD sent at 10/15/2022 10:34 AM EDT ----- Normal CXR. documented in this encounter [facility] 10-14-2022 Note HNO ID: [id number] Author: Meghna Ponce RT(R) Service: ? Author Type: Battery Installer Type: Progress Notes Filed: 10/14/2022 5:45 PM Note Text: Radiology Service Progress Note PATIENT NAME: Sherif Bonilla DATE OF SERVICE: October 14, 2022 TIME: 5:39 PM PATIENT IDENTITY VERIFICATION COMPLETED USING TWO (2) IDENTIFIERS: Name and Date of confirmed by patient verbally. FALL SCREENING: Has the patient had 2 falls in the last year or 1 fall with injury or currently using an Ambulatory Assistive Device (Walker, Cane, Wheelchair, Crutches, etc.)? No PATIENT GENDER DATA: Male PATIENT RELEVANT IMPLANT DATA REVIEWED: Yes RADIOLOGY DEPARTMENT: General X-ray: Exam(s) Completed: Chest X-Ray PERIPHERAL IV DATA: Not applicable SIGNED BY: RT Jose(R) October 14, 2022 5:39 PM [facility] 10-14-2022 Note HNO ID: [id number] Author: Dary Faulkner APRN.VAULT KEEPER Service: ? Author Type: Nurse Practitioner Type: Progress Notes Filed: 10/14/2022 5:28 PM Note Text: 10/14/2022 Patient presents with: Physical SUBJECTIVE: This is a 37 year old that is here today for Above Complaints. For the last couple months has an numbness and tingling in right and left middle and ring finger. Aggravated by having his arm in certain positions. 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 Left hand dominant. Denies dropping things, hand weakness or swelling of hands Chest pain: incident the other night when cleaning garage. Located mid sternal. Described as sharp. Lasted about one minute. Admits to some dizziness and heart felt like it was beating faster with it. Denies accompanying diaphoresis, jaw/back pain, SOB, dyspnea or nausea. PAST MEDICAL HISTORY Diagnosis Date Anxiety Colon polyp Dysthymic disorder Depression (non-psychotic) Elevated LFTs Fatty liver disease, nonalcoholic Insomnia Irritable bowel syndrome Irritable bowel Keloid scar umbilicus Mixed hyperlipidemia Obesity (BMI 30-39.9) Tobacco use Vitamin D insufficiency ALLERGIES Doxycycline, Keflex [Cephalexin], Morphine, Penicillins, and Prednisone MEDICATIONS Current Outpatient Medications Medication Sig LORazepam (ATIVAN) 0.5 mg Take 0.5 mg by mouth three times daily as needed. meloxicam (MOBIC) 15 mg tablet Take 1 tablet by mouth once daily. With food. PARoxetine (PAXIL) 40 mg tablet Take 1 tablet by mouth once daily. naproxen (NAPROSYN) 500 mg tablet Take 1 tablet by mouth twice daily as needed (for pain/inflammation). Take with food. No current facility-administered medications for this visit. Medications and allergies reviewed by this provider. SOCIAL HISTORY Social History Tobacco Use Smoking status: Former Packs/day: 1.00 Years: 15.00 Additional pack years: 0.00 Total pack years: 15.00 Types: Cigarettes Quit date: 08/11/2021 Years since quittin.1 Smokeless tobacco: Never Tobacco comments: Patient reports vaping 09/22/22 Vaping Use Vaping Use: Never used Substance Use Topics Alcohol use: No Drug use: No REVIEW OF SYSTEMS GENERAL: No weight loss, malaise or fevers HEENT: Negative for frequent or significant headaches, No changes in hearing or vision, no nose bleeds or other nasal problems NECK: Negative for lumps, goiter, pain and significant neck swelling RESPIRATORY: Negative for cough, hemoptysis, wheezing, COPD, dyspnea or shortness of breath CARDIOVASCULAR: See HPI OBJECTIVE: BP 116/70 Pulse 93 Resp 16 Ht 174.2 cm (5' 8.58 ) Wt 121.2 kg (267 lb 3.2 oz) SpO2 98% BMI 39.94 kg/m? . Vital signs reviewed by this provider. APPEARANCE Well appearing, alert, in no acute distress, well-hydrated, well nourished. and Overweight EYES PERRLA, conjunctiva and sclera normal. HEART RRR with normal S1 and S2, no murmurs, no gallops, no JVD appreciated LUNG clear to auscultation EXTREMITIES Extremities normal, No deformities, No skin discoloration, and No edema SKIN Skin color, texture, turgor normal, no suspicious rashes or lesions HANDS: No obvious deformity or swelling. Positive Phalen's and tinel's bilaterally. 2+ radial pulses with cap refill WNL Component Latest Ref Rng AND Units 09/22/2022 WBC 3.70 - 11.00 k/uL 9.22 RBC 4.20 - 6.00 m/uL 5.57 Hemoglobin 13.0 - 17.0 g/dL 16.1 Hematocrit 39.0 - 51.0 % 47.5 MCV 80.0 - 100.0 fL 85.3 MCH 26.0 - 34.0 pg 28.9 MCHC 30.5 - 36.0 g/dL 33.9 RDW-CV 11.5 - 15.0 % 13.1 Platelet Count 150 - 400 k/uL 262 MPV 9.0 - 12.7 fL 11.4 Neut% % 63.6 Abs Neut (ANC) 1.45 - 7.50 k/uL 5.85 Lymph% % 24.6 Abs Lymph 1.00 - 4.00 k/uL 2.27 [place]% % 7.0 Abs [place] <0.87 k/uL 0.65 Eosin% % 4.1 Abs Eosin <0.46 k/uL 0.38 Baso% % 0.5 Abs Baso <0.11 k/uL 0.05 Immature Gran % % 0.2 IMMATURE GRANS (ABS) <0.10 k/uL <0.03 NRBC /100 WBC 0.0 Absolute nRBC <0.01 k/uL <0.01 DTYPE Auto Protein, Total 6.3 - 8.0 g/dL 7.2 Albumin 3.9 - 4.9 g/dL 4.3 Calcium 8.5 - 10.2 mg/dL 9.4 Bilirubin, Total 0.2 - 1.3 mg/dL 0.3 Alkaline Phosphatase 38 - 113 U/L 114 (H) AST 14 - 40 U/L 41 (H) ALT 10 - 54 U/L 64 (H) Glucose 74 - 99 mg/dL 80 BUN 9 - 24 mg/dL 13 Creatinine 0.73 - 1.22 mg/dL 0.91 Sodium 136 - 144 mmol/L 138 Potassium 3.7 - 5.1 mmol/L 4.2 Chloride 97 - 105 mmol/L 105 CO2 22 - 30 mmol/L 22 Anion Gap 9 - 18 mmol/L 11 eGFR >=60 mL/min/1.73mA? 112 TSH 0.270 - 4.200 mIU/L 1.680 Vitamin D 25 Hydroxy 31.0 - 80.0 ng/mL 22.6 (L) HEPATITIS B(1 of 3 - 3-dose series) Never done PNEUMOCOCCAL(1 - PCV) Never done COLORECTAL CANCER SCREENING due on 11/12/2018 COVID-19 VACCINE(3 - Pfizer series) due on 10/14/2022 INFLUENZA(1) due on 10/23/2022 LIPID SCREEN due on 10/14/2026 DTAP,TDAP,TD(2 - Td or Tdap) due on 10/15/2031 HEPATITIS C SCREENING Completed HIV SCREENING Completed HPV VACCINE Aged Out ASSESSMENT/PLAN: 1. (more content not included)... [facility] 10-14-2022 Instructions Dary Faulkner APRN.VAULT KEEPER - 10/14/2022 5:14 PM EDT Follow-up pending testing CARPAL TUNNEL SYNDROME GENERAL MEASURES - Diagnostic studies may include electrophysiologic nerve tests (records electrical acitivity of muscles) and X-rays of the hand and wrist. -Conservative treatment is usually tried first. -Discomfort improves by shaking hands or dangling arms. If you awaken at night with pain in your hand, hang it over the side of the bed; rub or shake it. -Wearing a splint on the affected wrist may be recommended. -For work at a [employer], be sure, desk, keyboard and chair are at the proper height. Take a break once an hour. -Surgery to free the pinched nerve. Provides almost complete relief from all symptoms in 95% of patients. Procedure may be done as an outpatient. allow 2 weeks for healing. MEDICATIONS: -Anti-inflammatory drugs to reduce inflammation. -Cortisone injections at the wrist to reduce inflammation. -Vitamin B-6 (pyridoxine) may reduce symptoms; use only if prescribed for your disorder. ACTIVITY: Stay as active as your strength allows. If surgery has been necessary, allow time for recovery. Exercises may be prescribed for the hand. DIET: Eat a normal, well-balanced diet. NOTIFY our office if: -Symptoms of carpal tunnel syndrome don't lessen in 2 weeks after treatment. documented in this encounter [facility] 10-14-2022 Note HNO ID: [id number] Author: Quiana Kumari Service: ? Author Type: ? Type: Progress Notes Filed: 10/20/2022 5:43 AM Note Text: [facility]# [id number], date shipped out 10/14/22 Tracking mailout: [id number] Tracking return: [id number] [facility] 10-14-2022 History of Present illness Narrative 10/14/2022 Patient presents with: Physical SUBJECTIVE: This is a 37 year old that is here today for Above Complaints. For the last couple months has an numbness and tingling in right and left middle and ring finger. Aggravated by having his arm in certain positions. 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 Left hand dominant. Denies dropping things, hand weakness or swelling of hands Chest pain: incident the other night when cleaning garage. Located mid sternal. Described as sharp. Lasted about one minute. Admits to some dizziness and heart felt like it was beating faster with it. Denies accompanying diaphoresis, jaw/back pain, SOB, dyspnea or nausea. PAST MEDICAL HISTORY Diagnosis Date Anxiety Colon polyp Dysthymic disorder Depression (non-psychotic) Elevated LFTs Fatty liver disease, nonalcoholic Insomnia Irritable bowel syndrome Irritable bowel Keloid scar umbilicus Mixed hyperlipidemia Obesity (BMI 30-39.9) Tobacco use Vitamin D insufficiency ALLERGIES Doxycycline, Keflex [Cephalexin], Morphine, Penicillins, and Prednisone MEDICATIONS Current Outpatient Medications Medication Sig LORazepam (ATIVAN) 0.5 mg Take 0.5 mg by mouth three times daily as needed. meloxicam (MOBIC) 15 mg tablet Take 1 tablet by mouth once daily. With food. PARoxetine (PAXIL) 40 mg tablet Take 1 tablet by mouth once daily. naproxen (NAPROSYN) 500 mg tablet Take 1 tablet by mouth twice daily as needed (for pain/inflammation). Take with food. No current facility-administered medications for this visit. Medications and allergies reviewed by this provider. SOCIAL HISTORY Social History Tobacco Use Smoking status: Former Packs/day: 1.00 Years: 15.00 Additional pack years: 0.00 Total pack years: 15.00 Types: Cigarettes Quit date: 08/11/2021 Years since quittin.1 Smokeless tobacco: Never Tobacco comments: Patient reports vaping 09/22/22 Vaping Use Vaping Use: Never used Substance Use Topics Alcohol use: No Drug use: No REVIEW OF SYSTEMS GENERAL: No weight loss, malaise or fevers HEENT: Negative for frequent or significant headaches, No changes in hearing or vision, no nose bleeds or other nasal problems NECK: Negative for lumps, goiter, pain and significant neck swelling RESPIRATORY: Negative for cough, hemoptysis, wheezing, COPD, dyspnea or shortness of breath CARDIOVASCULAR: See HPI OBJECTIVE: BP 116/70 Pulse 93 Resp 16 Ht 174.2 cm (5' 8.58 ) Wt 121.2 kg (267 lb 3.2 oz) SpO2 98% BMI 39.94 kg/m . Vital signs reviewed by this provider. APPEARANCE Well appearing, alert, in no acute distress, well-hydrated, well nourished. and Overweight EYES PERRLA, conjunctiva and sclera normal. HEART RRR with normal S1 and S2, no murmurs, no gallops, no JVD appreciated LUNG clear to auscultation EXTREMITIES Extremities normal, No deformities, No skin discoloration, and No edema SKIN Skin color, texture, turgor normal, no suspicious rashes or lesions HANDS: No obvious deformity or swelling. Positive Phalen's and tinel's bilaterally. 2+ radial pulses with cap refill WNL Component Latest Ref Rng & Units 09/22/2022 WBC 3.70 - 11.00 k/uL 9.22 RBC 4.20 - 6.00 m/uL 5.57 Hemoglobin 13.0 - 17.0 g/dL 16.1 Hematocrit 39.0 - 51.0 % 47.5 MCV 80.0 - 100.0 fL 85.3 MCH 26.0 - 34.0 pg 28.9 MCHC 30.5 - 36.0 g/dL 33.9 RDW-CV 11.5 - 15.0 % 13.1 Platelet Count 150 - 400 k/uL 262 MPV 9.0 - 12.7 fL 11.4 Neut% % 63.6 Abs Neut (ANC) 1.45 - 7.50 k/uL 5.85 Lymph% % 24.6 Abs Lymph 1.00 - 4.00 k/uL 2.27 [place]% % 7.0 Abs [place] <0.87 k/uL 0.65 Eosin% % 4.1 Abs Eosin <0.46 k/uL 0.38 Baso% % 0.5 Abs Baso <0.11 k/uL 0.05 Immature Gran % % 0.2 IMMATURE GRANS (ABS) <0.10 k/uL <0.03 NRBC /100 WBC 0.0 Absolute nRBC <0.01 k/uL <0.01 DTYPE Auto Protein, Total 6.3 - 8.0 g/dL 7.2 Albumin 3.9 - 4.9 g/dL 4.3 Calcium 8.5 - 10.2 mg/dL 9.4 Bilirubin, Total 0.2 - 1.3 mg/dL 0.3 Alkaline Phosphatase 38 - 113 U/L 114 (H) AST 14 - 40 U/L 41 (H) ALT 10 - 54 U/L 64 (H) Glucose 74 - 99 mg/dL 80 BUN 9 - 24 mg/dL 13 Creatinine 0.73 - 1.22 mg/dL 0.91 Sodium 136 - 144 mmol/L 138 Potassium 3.7 - 5.1 mmol/L 4.2 Chloride 97 - 105 mmol/L 105 CO2 22 - 30 mmol/L 22 Anion Gap 9 - 18 mmol/L 11 eGFR >=60 mL/min/1.73m 112 TSH 0.270 - 4.200 mIU/L 1.680 Vitamin D 25 Hydroxy 31.0 - 80.0 ng/mL 22.6 (L) HEPATITIS B(1 of 3 - 3-dose series) Never done PNEUMOCOCCAL(1 - PCV) Never done COLORECTAL CANCER SCREENING due on 11/12/2018 COVID-19 VACCINE(3 - Pfizer series) due on 10/14/2022 INFLUENZA(1) due on 10/23/2022 LIPID SCREEN due on 10/14/2026 DTAP,TDAP,TD(2 - Td or Tdap) due on 10/15/2031 HEPATITIS C SCREENING Completed HIV SCREENING Completed HPV VACCINE Aged Out ASSESSMENT/PLAN: 1. Chest pain, unspecified type - ICD9: 786.50, ICD10: R07.9 (primary diagnosis) Chest pain of unclear etiology, patient with significant risk factor(s) of family history of early coronary heart disease, Hyperlipidemia, and smoking - Electrocardiogram: An ECG today showed normal sinus rhythm at 83 BPM, MT interval 182 ms, incomplete right bundle branch block, normal ST-T, QT 368 ms - Lab evaluation magnesium - Chest X-ray today. - Stress testing- see orders - ECG COMPLETE - EXERCISE STRESS ECG (WITHOUT IMAGING) - XR CHEST 2V FRONTAL/LAT - MAGNESIUM BLD - follow-up pending testing - will need to come back for routine physical 2. Hyperlipidemia, mixed - ICD9: 272.2, ICD10: E78.2 - Counseled on healthy diet and regular exercise - Discussed need for and benefit of weight loss. BMI 39.94 kg/(m^2) - LIPID PANEL BASIC 3. Hx of colonic polyps - ICD9: V12.72, ICD10: Z86.010 - over due for colonoscopy by 4 years - CONSULT TO GENERAL SURGERY 4. Numbness and tingling in both hands - ICD9: 782.0, ICD10: R20.0, R20.2 - discussed conservative treatment and EMG testing - declines EMG at this time - handout on stretches given to patient - follow up as needed Dary Podlogar, PRODUCTION ILLUSTRATOR.VAULT KEEPER Prescription instructions reviewed with patient as applicable. Patient advised if symptoms do not improve or if symptoms worsen sooner, to contact their primary care physician. Potential red flag symptoms discussed with the patient. Reviewed appropriate action plan to take if red flag symptoms occur. Patient agreeable to treatment plan. I spent a total of 35 minutes on the date of the service which included preparing to see the patient, [id number] patient care, completing clinical documentation, obtaining and/or reviewing separately obtained history, performing a medically appropriate examination, counseling and educating the patient/family/caregiver, and ordering medications, tests, or procedures. documented in this encounter [facility] 10-12-2022 Note HNO ID: [id number] Author: Ashlyn Hernandez MD Service: ? Author Type: Physician Type: Progress Notes Filed: 10/20/2022 5:43 AM Note Text: October 12, 2022 Standing PSG Orders signed in the last 90 days None Future PSG Orders signed in the last 90 days Ordered Auth. provider HOME SLEEP APNEA TEST (HSAT) [[id number]] 09/22/22 Samuel Pressley MD Assoc. diagnoses: Fatigue, unspecified type [R53.83], Daytime somnolence [R40.0], Snoring [R06.83] Q: Indications: A: Obstructive sleep apnea Q: STOP-BANG conditions - Select All That Apply: A: GENDER = male A2: BMI > 35 kg/m2 A3: SNORING that is loud or disruptive A4: OBSERVED sleep apnea A5: TIREDNESS, fatigue or sleepiness during the day Q: Current use of supplemental oxygen during sleep period?: A: No All Prior Sleep Studies (past 365 days) Some values may be hidden. Unless noted otherwise, only the newest values recorded on each date are displayed. Sleep Studies HOME SLEEP APNEA TEST (HSAT) Future Expected: Expires: 09/22/23 BMI Readings from Last 2 Encounters: 09/22/22 : 39.53 kg/m? 05/06/22 : 37.82 kg/m? PAST MEDICAL HISTORY Diagnosis Date Anxiety Colon polyp Dysthymic disorder Depression (non-psychotic) Elevated LFTs Fatty liver disease, nonalcoholic Insomnia Irritable bowel syndrome Irritable bowel Keloid scar umbilicus Mixed hyperlipidemia Obesity (BMI 30-39.9) Tobacco use Vitamin D insufficiency The medical record was reviewed to determine if the proposed sleep study conforms to the [facility] Practice Parameters for the Indications for Polysomnography and Related Procedures, or if the sleep study is indicated for other reasons. Indications for study: JOHANNA suspected without comorbid medical or sleep disorders Sleep study to be performed: Home Sleep Apnea Test (HSAT) Special instructions: None-follow laboratory protocol [facility] Staff Note: I have read the above protocol, edited as needed, and agree to the plan. Ashlyn Guillermo MD 3:47 PM, 10/14/2022 [facility] 10-05-2022 Miscellaneous Notes TC to patient who verbalized understanding of providers message and has no questions at this time. SHYANNE Tamayo ----- Message from Samuel Pressley MD sent at 10/05/2022 2:55 PM EDT ----- US of the liver shows signs of fatty liver disease as expected based on blood work results. Recommend healthy diet and exercise to promote weight loss and help reverse this process. Will continue to monitor LFTs at future OV to watch for progression/worsening function. documented in this encounter [facility] 10-01-2022 Note HNO ID: [id number] Author: Cheyenne Braswell RDMS Service: ? Author Type: Setter Automatic Spinning Lathe Type: Progress Notes Filed: 10/01/2022 10:19 AM Note Text: Radiology Service Progress Note PATIENT NAME: Sherif Bonilla DATE OF SERVICE: October 01, 2022 TIME: 10:19 AM PATIENT IDENTITY VERIFICATION COMPLETED USING TWO (2) IDENTIFIERS: Name and Date of confirmed by patient verbally. FALL SCREENING: Has the patient had 2 falls in the last year or 1 fall with injury or currently using an Ambulatory Assistive Device (Walker, Cane, Wheelchair, Crutches, etc.)? No PATIENT GENDER DATA: Male PATIENT RELEVANT IMPLANT DATA REVIEWED: Not Applicable RADIOLOGY DEPARTMENT: Ultrasound PERIPHERAL IV DATA: Not applicable SIGNED BY: Cheyenne Braswell RDMS RVT October 01, 2022 10:19 AM [facility] 10-01-2022 History of Present illness Narrative Radiology Service Progress Note PATIENT NAME: Sherif Bonilla DATE OF SERVICE: October 01, 2022 TIME: 10:19 AM PATIENT IDENTITY VERIFICATION COMPLETED USING TWO (2) IDENTIFIERS: Name and Date of confirmed by patient verbally. FALL SCREENING: Has the patient had 2 falls in the last year or 1 fall with injury or currently using an Ambulatory Assistive Device (Walker, Cane, Wheelchair, Crutches, etc.)? No PATIENT GENDER DATA: Male PATIENT RELEVANT IMPLANT DATA REVIEWED: Not Applicable RADIOLOGY DEPARTMENT: Ultrasound PERIPHERAL IV DATA: Not applicable SIGNED BY: Cheyenne Braswell RDMS RVT October 01, 2022 10:19 AM documented in this encounter [facility] 09-30-2022 Note HNO ID: [id number] Author: Helene Marcos Service: ? Author Type: ? Type: Progress Notes Filed: 10/20/2022 5:43 AM Note Text: September 30, 2022 An order has been received for Home Sleep Apnea Test (HSAT) from Samuel Harvey MD , a B. [facility] Staff. Visit prep complete. Comments :No The sleep study is scheduled for 10/30. Insurance: Payor: [facility] MEDICAID / [facility] / Product Type: Medicaid / Payer/Plan Subscr Sex Relation Sub. Ins. ID Effective Group Num 1. [facility]* SHERIF BONILLA* 1985 Male Self [id number] 03/25/22 [facility] [address] Helene Marcos [facility] 09-24-2022 Miscellaneous Notes Pt called and is notified of providers results and instructions. Pt voices understanding. Transferred to scheduled to set up appt for Abd US. My Babulski, RN Vitamin D level low. Recommend 2,000 units of vitamin D OTC on a daily basis. Recheck in 3-6 months. LFTs mildly elevated. Suspect this is 2/2 fatty liver disease. Recommend US to confirm. Recommend avoidance of tylenol and alcohol. Other labs normal. documented in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 this sleep difficulties. Increase Paxil to help with his anxiety symptoms. Utilize Hydroxyzine and Ativan as needed for increased episodes of anxiety. Schedule an appointment for individual psychotherapy. Follow up in 4 to 6 weeks. Medication Update: Trazodone 100 mg - take 1 tablet at bedtime Paxil 40 mg - take tablet once daily. Continue Hydroxyzine and Ativan as needed for increased feelings of anxiety. The effects and side effects of all the medications were reviewed in detail with the patient. PDMP report was reviewed and found to be appropriate without any signs of misuse or diversion. Patient isin agreement with the treatment plan and aware to reach out with any questions, concerns, or worsening of symptoms prior to the next appointment. CC: Follow up regarding anxiety With the patient consent, visit was performed virtually. HPI: Sherif Bonilla is a 36 year old Male with a history of TOMAS, insomnia, and Panic disorder presenting today for follow-up. Date of last visit: 12/05/2021 Plan from last visit: Add Trazodone to address his sleep difficulties. Change time of Paxil to morning to see if it helps with his sleep difficulties and restless leg symptoms. Continue Hydroxyzine and Ativan as needed. Follow up in 4 weeks. Today Sherif shares that he has noticing that his anxiety has been building a bit. He does attribute some to the holiday time and financial stress. He has noticed that Trazodone has helped with his restless leg symptoms. He is still having trouble falling asleep. He tried changing the time of Paxil to the morning but he continued to experience restless leg symptoms. He switched it back to night time. Denies any anxiety related to work. New job is good but he lost some assistance. This has caused some financial strain. 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 He has been using hydroxyzine to help with anxiety. Still needs to take Ativan every 2 to 3 days tomanage overwhelming panic symptoms. Interval Progress: Slightly worse Risks and benefits of the medication, including any black box warnings, were discussed with the patient. Social History: See HPI PATIENT DATA: Generalized Anxiety Disorder Scale (TOMAS-7) TOMAS - 7 SCORES 10/23/2021 12/04/2021 01/05/2022 TOMAS-7 Score 10 4 5 (0-4) minimal anxiety, (5-9) mild anxiety, (10-14) moderate anxiety, (15-21) severe anxiety Patient Health Questionnaire (PHQ-9) PHQ-9 10/23/2021 12/04/2021 01/05/2022 Score 9 5 5 (0-4) minimal depression, (5-9) mild depression, (10-14) moderate depression, (15-19) moderately severe depression, (20-27) severe depression ROS: General: Negative for fever, malaise, unintentional weight loss HEENT: Negative for recent changes in vision or hearing, no nasal drainage Respiratory: Negative for cough, wheezing or SOB Cardiovascular: Negative for chest pain GI: Negative for nausea, vomiting, change in bowel habits MUSCULOSKELETAL: Negative for acute back or joint pain SKIN: Negative for rash NEURO: Negative for headaches, seizures, focal neurological deficits All other systems negative. VITAL SIGNS: BP Temp Pulse Resp SpO2 MENTAL STATUS EXAMINATION: Appearance: Appropriately groomed, appears stated age Behavior: Appropriately engaged Psychomotor: No psychomotor agitation Cognition Level of Consciousness: Awake and alert. No fluctuation in wakefulness. Orientation: Grossly oriented Memory: Intact Attention/Concentration: Good Fund of Knowledge: Able to demonstrate an awareness of current events. Mood: Anxious Affect: Congruent to mood Speech/Language: Appropriate tone, prosody, angelica, phonetics, and syntax Thought Form: Goal-directed. No loosening of associations. Thought Content: No delusions noted or endorsed. Perceptual Disturbances: Did not appear to respond to auditory stimuli. Safety: Suicidal Ideations: No suicidal ideation, intent or plan. Homicidal Ideations: No homicidal ideation, intent or plan. Insight: Appropriate Judgment: Appropriate I spent a total of 28 minutes on the date of the service which included preparing to see the patient, [id number] patient care, completing clinical documentation, and counseling and educating the patient/family/caregiver, ordering medications/labs. Brooke Smith APRN.VAULT KEEPER January 12, 2022 4:31 PM This note was partially generated using [employer] voice recognition system. Note was reviewed for accuracy. There may be minor misspellings or grammar miscues with [employer] voice recognition. documented in this encounterSelect [facility]10-14-2022 Instructions* Patient Instructions* Brooke Smith APRN.CNP - 12/05/2021 5:17 PM EDT Shawna Gorman, It was good to talk with you today. Below is a summary of the plan that we discussed during your appointment for reference. Of course, if you have any questions or concerns do not hesitate to reach out to me via a message or call. Best, Brooke Smith APRN.CNP PLAN AND FOLLOW UP: YOU SHOULD SEEK IMMEDIATE MEDICAL ATTENTION AT THE NEAREST EMERGENCY DEPARTMENT OR BY CALLING 911, IF ANY OF THE FOLLOWING OCCURS: - New or worsening thoughts of harming yourself (suicidal thoughts) or others (homicidal thoughts) - Not feeling safe at home or worrying about your ability to remain safe at home If you are having thoughts of harming yourself or others, then you can: - Call the National Suicide Hotline at 0-102-EZGIFAD ( ) or 7-106-702-TALK (8428) - Text 4KAAE to 101345 Medication Update: Trazodone 50 mg - take 1 tablet once daily. 2. Change time of Paxil to morning. 3. Continue Hydroxyzine and Ativan at the same dose. Next appointment: --Schedule in 4 weeks or sooner if needed -- You may call the department appointment line at [phone] to schedule your appointment. -- Please call my nurse Yudi at [phone] or send me a message in [facility] with any questions or concerns between appointments. documented in this encounterSelect [facility]10-14-[facility]22 History of Present illness Narrative* Brooke Smith APRN.CNP - 12/05/2021 4:00 PM EDT Images from the original note were not included. PSYC FOLLOW UP - PSYCHIATRIC PROGRESS NOTE DIAGNOSIS: Panic disorder without agoraphobia Generalized Anxiety Disorder Insomnia GAF: -70-61 Some mild symptoms or some difficulty in social, occupational, or school functioning, but generally functioning pretty well. TREATMENT PLAN: Add Trazodone to address his sleep difficulties. Change time of Paxil to morning to see if it helps with his sleep difficulties and restless leg symptoms. Continue Hydroxyzine and Ativan as needed. Follow up in 4 weeks. Medication Update: Trazodone 50 mg - take 1 tablet once daily. 2. Change time of Paxil to morning. 3. Continue Hydroxyzine and Ativan at the same dose. The effects and side effects of all the medications were reviewed in detail with the patient. PDMP report was reviewed and found to be appropriate without any signs of misuse or diversion. Patient isin agreement with the treatment plan and aware to reach out with any questions, concerns, or worsening of symptoms prior to the next appointment. CC: Follow up regarding anxiety With the patient consent, visit was performed virtually. HPI: Sherif Bonilla is a 36 year old Male with a history of TOMAS and Panic disorder presenting today for follow-up. Date of last visit: 10/24/2021 Plan from last visit: Increase Paxil to address his anxiety and sleep difficulties at night. Continue Hydroxyzine and Ativan as needed. Follow up in 4 to 6 weeks. Today Sherif shares that he is doing okay. The Paxil has been helping his anxiety symptoms and evenhis family has noticed the significant improvement in these symptoms. He continues to struggle withfalling asleep. There are some new stressors but he is hoping that they will resolve by next month.He is still needing to take the Ativan every few days due to his sleep difficulties and racing thoughts. His anxiety is fine all day until he gets to bed. He has noticed some restless leg related side effects. His iron levels were with in normal limits. He takes Paxil at night. We discussed switching the time to daytime to see if these side effects improve. Hydroxyzine does not help him fall asleep but helps him stay asleep. Without taking it patient struggles with interrupted sleep. Interval Progress: Slightly improved Risks and benefits of the medication, including any black box warnings, were discussed with the patient. Social History: See HPI PATIENT DATA: Generalized Anxiety Disorder Scale (TOMAS-7) TOMAS - 7 SCORES 09/22/2021 10/23/2021 12/04/2021 TOMAS-7 Score 17 10 4 (0-4) minimal anxiety, (5-9) mild anxiety, (10-14) moderate anxiety, (15-21) severe anxiety Patient Health Questionnaire (PHQ-9) PHQ-9 09/22/2021 10/23/2021 12/04/2021 Score 10 9 5 (0-4) minimal depression, (5-9) mild depression, (10-14) moderate depression, (15-19) moderately severe depression, (20-27) severe depression ROS: See HPI General: Negative for fever, malaise, unintentional weight loss HEENT: Negative for recent changes in vision or hearing, no nasal drainage Respiratory: Negative for cough, wheezing or SOB Cardiovascular: Negative for chest pain GI: Negative for nausea, vomiting, change in bowel habits MUSCULOSKELETAL: Negative for acute back or joint pain SKIN: Negative for rash NEURO: Negative for headaches, seizures, focal neurological deficits All other systems negative. VITAL SIGNS: BP Temp Pulse Resp SpO2 MENTAL STATUS EXAMINATION: Appearance: Appropriately groomed, appears stated age Behavior: Appropriately engaged Psychomotor: No psychomotor agitation Cognition Level of Consciousness: Awake and alert. No fluctuation in wakefulness. Orientation: Grossly oriented Memory: Intact Attention/Concentration: Good Fund of Knowledge: Able to demonstrate an awareness of current events. Mood: Mildly anxious Affect: Congruent to mood Speech/Language: Appropriate tone, prosody, angelica, phonetics, and syntax Thought Form: Goal-directed. No loosening of associations. Thought Content: No delusions noted or endorsed. Perceptual Disturbances: Did not appear to respond to auditory stimuli. Safety: Suicidal Ideations: No suicidal ideation, intent or plan. Homicidal Ideations: No homicidal ideation, intent or plan. Insight: Appropriate Judgment: Appropriate I spent a total of 28 minutes on the date of the service which included preparing to see the patient, [id number] patient care, completing clinical documentation, and counseling and educating the patient/family/caregiver, ordering medications/labs. Brooke Smith APRN.VAULT KEEPER December 05, 2021 4:00 PM This note was partially generated using [employer] voice recognition system. Note was reviewed for accuracy. There may be minor misspellings or grammar miscues with [employer] voice recognition. documented in this encounterSelect [facility] Hospital Discharge instructions Patient Education 10/27/2021 23:20:28 COVID-19 Prevent the Spread of COVID-19 If You Are Sick (07/11/2019)(CUSTOM) Prevent the Spread of COVID-19 If You Are Sick Accessible version: https://www.cdc.gov/coronavirus/2019-ncov/ed-kpp-rlu-sick/ypnwa-qhxd-oloe.html If you are sick with COVID-19 or think you might have COVID-19, follow the steps below to help protect other people in your home and community. Stay home except to get medical care. Stay home. Most people with COVID-19 have mild illness and are able to recover at home without medical care. Do not leave your home, except to get medical care. Do not visit public areas. Take care of yourself. Get rest and stay hydrated. Get medical care when needed. Call your doctor before you go to their office for care. But, if you have trouble breathing or other concerning symptoms, call 911 for immediate help. Avoid public transportation, ride-sharing, or taxis. Separate yourself from other people and pets in your home. As much as possible, stay in a specific room and away from other people and pets in your home. Also, you should use a separate bathroom, if available. If you need to be around other people or animalsin or outside of the home, wear a cloth face covering. See COVID-19 and Animals if you have questions about pets: https://www.cdc.gov/coronavirus/2019ncov/faq.html#XHPGB50zgzecaz Monitor your symptoms. Common symptoms of COVID-19 include fever and cough. Trouble breathing is a more serious symptom that means you should get medical attention. Follow care instructions from your healthcare provider and local health department. Your local health authorities will give instructions on checking your symptoms and reporting information. If you develop emergency warning signs for COVID-19 get medical attention immediately. Emergency warning signs include*: Trouble breathing Persistent pain or pressure in the chest New confusion or not able to be woken Bluish lips or face *This list is not all inclusive. Please consult your medical provider for any other symptoms that are severe or concerning to you. Call 911 if you have a medical emergency. If you have a medical emergency and need to call 911, notify the telephone plant power operator that you have or think you might have, COVID-19. If possible, put on a facemask before medical help arrives Call ahead before visiting your doctor. Call ahead. Many medical visits for routine care are being postponed or done by phone or telemedicine. If you have a medical appointment that cannot be postponed, call your doctor s office. This will help the office protect themselves and other patients. If you are sick, wear a cloth covering over your nose and mouth. You should wear a cloth face covering over your nose and mouth if you must be around other people or animals, including pets (even at home). You don t need to wear the cloth face covering if you are alone. If you can t put on a cloth face covering (because of trouble breathing for example), cover your coughs and sneezes in some other way.Try to stay at least 6 feet away from other people. This will help protect the people around you. Note: During the COVID-19 pandemic, medical grade facemasks are reserved for healthcare workers andsome first responders. You may need to make a cloth face covering using a scarf or bandana. Cover your coughs and sneezes. Cover your mouth and nose with a tissue when you cough or sneeze. Throw used tissues in a lined trash can. Immediately wash your hands with soap and water for at least 20 seconds. If soap and water are not available, clean your hands with an alcohol-based hand career counselor that contains at least 60% alcohol. Clean your hands often. Wash your hands often with soap and water for at least 20 seconds. This is especially important after blowing your nose, coughing, or sneezing; going to the bathroom; and before eating or preparing food. Use hand career counselor if soap and water are not available. Use an alcohol-based hand career counselor with atleast 60% alcohol, covering all surfaces of your hands and rubbing them together until they feel dry. Soap and water are the best option, especially if your hands are visibly dirty. \ Avoid touching your eyes, nose, and mouth with unwashed hands. Avoid sharing personal household items. Do not share dishes, drinking glasses, cups, eating utensils, towels, or bedding with other people in your home. Wash these items thoroughly after using them with soap and water or put them in the cleaning technician. Clean all high-touch surfaces everyday. Clean and disinfect high-touch surfaces in your sick room and bathroom. Let someone else clean and disinfect surfaces in common areas, but not your bedroom and bathroom. If a caregiver or other person needs to clean and disinfect a sick person s bedroom or bathroom, they should do so on an as-needed basis. The caregiver/other person should wear a mask and wait as long as possible after the sick person has used the bathroom High-touch surfaces include phones, remote controls, counters, tabletops, doorknobs, bathroom fixtures, toilets, keyboards, tablets, and bedside tables. Clean and disinfect areas that may have blood, stool, or body fluids on them. Use household patient resource coordinator and disinfectants. Clean the area or item with soap and water or another detergent if it is dirty. Then use a household disinfectant. Be sure to follow the instructions on the label to ensure safe and effective use of the product. Many products recommend keeping the surface wet for several minutes to ensure germs are killed. Many also recommend precautions such as wearing gloves and making sure you have good ventilation during use of the product. Most EPA-registered household disinfectants should be effective. How to discontinue home isolation. People with COVID-19 who have stayed home (home isolated) can stop home isolation under the following conditions: If you will not have a test to determine if you are still contagious, you can leave home after these three things have happened: You have had no fever for at least 72 hours (that is three full days of no fever without the use ofmedicine that reduces fevers) AND other symptoms have improved (for example, when your cough or shortness of breath has improved) AND at least 10 days have passed since your symptoms first appeared. If you will be tested to determine if you are still contagious, you can leave home after these three things have happened: You no longer have a fever (without the use of medicine that reduces fevers) AND other symptoms have improved (for example, when your cough or shortness of breath has improved) AND you received two negative tests in a row, 24 hours apart. Your doctor will follow CDC guidelines. In all cases, follow the guidance of your healthcare provider and local health department. The decision to stop home isolation should be made in consultation with your healthcare provider and state and local health departments. Local decisions depend on local circumstances. cdc.gov/coronavirus Follow Up Care 10/27/2021 19:34:53 With:MEDICAL CLINIC Address: [address] [place] [phone]- Business (1) When:2-4 days With:[facility]) Address: [address] [place] [phone] Business (1) When:2-4 days With:[facility] Address: [address] [place] [phone]- Business (1) When:2-4 days With:Call Physician Referral Address:Unknown When:2-4 days [facility] 09-05-2022 Emergency department Discharge summary Discharge Instructions Thank you for allowing [facility] to assist you with your healthcare needs. The following is importantdischarge information regarding your hospital visit. Diagnosis from Today's Visit Chest pain What to Do Next Instructions from Your Care Team Covid-19 Discharge Packet (ED ONLY) - Ordered -- 10/27/21 23:20:00 EDT, Once Post Acute Orders No qualifying data available. You Need to Schedule the Following Appointments Follow Up with MEDICAL CLINIC When Within 2-4 days Where: [address] [place] [phone]- Business (1) Follow Up with [facility] (Critical [facility]) When Within 2-4 days Where: [address] [place] [phone] Business (1) Follow Up with [facility] When Within 2-4 days Where: [address] [place] [address]- Business (1) Follow Up with Call Physician Referral When Within 2-4 days Allergies Keflex (fingers turn black) doxycycline (Fingers turn black) morphine (Emesis, Facial swelling) penicillin (HIVES) predniSONE (Hives) Medications Please ask your primary doctor or pharmacist before taking any other medication not listed, including over the counter drugs, herbal medications, vitamins and or supplements as they may interact withyour home medications. What How Much When Instructions Last Dose New nirmatrelvir-ritonavir (Paxlovid 150 mg-100 mg (300 mg-100 mg Dose) oral tablet) 1 Packet(s) by mouth Two (2) times a day Duration: 5 Days Take 1 Packet = two 150mg nirmatrelvir tabs and one 100mg ritonavir tab. 3 tablets to be taken together by mouth twice a day for 5 days Pickup at [facility] Pharmacy Information [facility] [address]: [address] [place] [phone] Please take this list to your next doctor s visit. Bring all medications you take, including over the counter medications, herbals and other supplements with you to your doctor s visit. Patients and families are reminded to discard old lists and to update any records with all medication providers or retail pharmacies. Education Materials Prevent the Spread of COVID-19 If You Are Sick Accessible version: https://www.cdc.gov/coronavirus/2019-ncov/er-zzb-adv-sick/ndfmt-uzrc-xeyk.html If you are sick with COVID-19 or think you might have COVID-19, follow the steps below to help protect other people in your home and community. Stay home except to get medical care. Stay home. Most people with COVID-19 have mild illness and are able to recover at home without medical care. Do not leave your home, except to get medical care. Do not visit public areas. Take care of yourself. Get rest and stay hydrated. Get medical care when needed. Call your doctor before you go to their office for care. But, if you have trouble breathing or other concerning symptoms, call 911 for immediate help. Avoid public transportation, ride-sharing, or taxis. Separate yourself from other people and pets in your home. As much as possible, stay in a specific room and away from other people and pets in your home. Also, you should use a separate bathroom, if available. If you need to be around other people or animalsin or outside of the home, wear a cloth face covering. See COVID-19 and Animals if you have questions about pets: https://www.cdc.gov/coronavirus/2019ncov/faq.html#EMAES43zujqwoc Monitor your symptoms. Common symptoms of COVID-19 include fever and cough. Trouble breathing is a more serious symptom that means you should get medical attention. Follow care instructions from your healthcare provider and local health department. Your local health authorities will give instructions on checking your symptoms and reporting information. If you develop emergency warning signs for COVID-19 get medical attention immediately. Emergency warning signs include*: Trouble breathing Persistent pain or pressure in the chest New confusion or not able to be woken Bluish lips or face *This list is not all inclusive. Please consult your medical provider for any other symptoms that are severe or concerning to you. Call 911 if you have a medical emergency. If you have a medical emergency and need to call 911, notify the telephone plant power operator that you have or think you might have, COVID-19. If possible, put on a facemask before medical help arrives Call ahead before visiting your doctor. Call ahead. Many medical visits for routine care are being postponed or done by phone or telemedicine. If you have a medical appointment that cannot be postponed, call your doctor s office. This will help the office protect themselves and other patients. If you are sick, wear a cloth covering over your nose and mouth. You should wear a cloth face covering over your nose and mouth if you must be around other people or animals, including pets (even at home). You don t need to wear the cloth face covering if you are alone. If you can t put on a cloth face covering (because of trouble breathing for example), cover your coughs and sneezes in some other way.Try to stay at least 6 feet away from other people. This will help protect the people around you. Note: During the COVID-19 pandemic, medical grade facemasks are reserved for healthcare workers andsome first responders. You may need to make a cloth face covering using a scarf or bandana. Cover your coughs and sneezes. Cover your mouth and nose with a tissue when you cough or sneeze. Throw used tissues in a lined trash can. Immediately wash your hands with soap and water for at least 20 seconds. If soap and water are not available, clean your hands with an alcohol-based hand career counselor that contains at least 60% alcohol. Clean your hands often. Wash your hands often with soap and water for at least 20 seconds. This is especially important after blowing your nose, coughing, or sneezing; going to the bathroom; and before eating or preparing food. Use hand career counselor if soap and water are not available. Use an alcohol-based hand career counselor with atleast 60% alcohol, covering all surfaces of your hands and rubbing them together until they feel dry. Soap and water are the best option, especially if your hands are visibly dirty. \ Avoid touching your eyes, nose, and mouth with unwashed hands. Avoid sharing personal household items. Do not share dishes, drinking glasses, cups, eating utensils, towels, or bedding with other people in your home. Wash these items thoroughly after using them with soap and water or put them in the cleaning technician. Clean all high-touch surfaces everyday. Clean and disinfect high-touch surfaces in your sick room and bathroom. Let someone else clean and disinfect surfaces in common areas, but not your bedroom and bathroom. If a caregiver or other person needs to clean and disinfect a sick person s bedroom or bathroom, they should do so on an as-needed basis. The caregiver/other person should wear a mask and wait as long as possible after the sick person has used the bathroom High-touch surfaces include phones, remote controls, counters, tabletops, doorknobs, bathroom fixtures, toilets, keyboards, tablets, and bedside tables. Clean and disinfect areas that may have blood, stool, or body fluids on them. Use household patient resource coordinator and disinfectants. Clean the area or item with soap and water or another detergent if it is dirty. Then use a household disinfectant. Be sure to follow the instructions on the label to ensure safe and effective use of the product. Many products recommend keeping the surface wet for several minutes to ensure germs are killed. Many also recommend precautions such as wearing gloves and making sure you have good ventilation during use of the product. Most EPA-registered household disinfectants should be effective. How to discontinue home isolation. People with COVID-19 who have stayed home (home isolated) can stop home isolation under the following conditions: If you will not have a test to determine if you are still contagious, you can leave home after these three things have happened: You have had no fever for at least 72 hours (that is three full days of no fever without the use ofmedicine that reduces fevers) AND other symptoms have improved (for example, when your cough or shortness of breath has improved) AND at least 10 days have passed since your symptoms first appeared. If you will be tested to determine if you are still contagious, you can leave home after these three things have happened: You no longer have a fever (without the use of medicine that reduces fevers) AND other symptoms have improved (for example, when your cough or shortness of breath has improved) AND you received two negative tests in a row, 24 hours apart. Your doctor will follow CDC guidelines. In all cases, follow the guidance of your healthcare provider and local health department. The decision to stop home isolation should be made in consultation with your healthcare provider and state and local health departments. Local decisions depend on local circumstances. cdc.gov/coronavirus Additional Information VACCINATE! IT SAVES LIVES! Members of the community who have not yet received the COVID-19 vaccine and would like to receive it can visit one of [facility] vaccine clinics. There are many vaccine clinic locations within the [facility]. For locations and available times, please visit [email or web address]. It is important to note that some COVID mobile vaccine clinics are held outdoors and may be canceled in rainy orstormy conditions. To learn more about pediatric vaccinations (ages 5-11), we invite you to visit the [facility] webpage. [email or web address]/pages/[email or web address]-Srnfjpaepkl-Ovduwnocid-Exzyl-Edb stions.htmlTo learn more about the COVID-19 vaccine, we invite you to visit the [facility] website for a list of frequently asked questions. [email or web address]-nwg-Xiygjruv/tjnzp-[email or web address]-Xupjsfvjbh _[email or web address]-Questions.pdf [facility] Patient Portal Access Instructions: Stay connected with your healthcare team and access your personal medical information anytime with the [facility] Patient Portal. If you would like a full copy of your medical records please contact the [facility] Medical Records Department Wednesday through Wednesday between 8a.m. and 4:30p.m. Please follow the directions below to access the portal: 1.Access the email account you provided upon registration to the [facility].2.Look for an invitation email from [facility].3.Open the email and access the invitation link: Accept Invitation to [facility]4.Fill in the required mathew to create your account. Sign into [email or web address] with your username and password that you created in the above steps to stay up to date. You can then view a summary of results, a summary of your visits, and the ability to download your summaries to your computer or send the information securely to a physician. Remember that your healthcare information is confidential, so carefully consider who you will allow to register on the [facility] Patient Portal for access to your information. You can also access the [facility] Patient Portal on the [employer] ellis. Simply click on Health Records under [employer] and then click on the [facility] logo. HOW TO SAFELY DISPOSE OF PRESCRIPTION MEDICATIONS Please use one of the following methods to safely dispose of your unused medications. 1.Use a drug disposal kit: the drug disposal pouch allows you to safely discard your old and unuseddrugs. Ask your nurse to give you one when you are discharged.2.Visit a local take-back location: Many local pharmacies and police departments have programs that collect old and unwanted prescriptiondrugs. Call your local pharmacy or go to http://bit.ly/9H2Ki9q to find one close to you.3.Make use of household items: Use cat litter or old coffee grounds to dispose medications if other options arenot available. Mix your drugs with these household products, seal them in an airtight container andthrow it into the garbage. Call [facility]: [phone] to be sure your drugs can be disposed of in this way. Some medicines may require a different approach.4.Never flush your medications down the toilet. IF YOU HAVE BEEN PRESCRIBED AN OPIOIDS FOR PAIN If you have been prescribed an opioid (such as hydrocodone, oxycodone or morphine), it is critical to understand the possible side effects and risks of opioid pain medications. Even when taken as directed, opioids can have several side effects including: Tolerance, meaning you might need to take more of a medication for the same pain relief. Nausea, vomiting and/or constipation. Sleepiness, dizziness, dry mouth, confusion, depression or itching. Physical dependence, meaning you have withdrawal symptoms when a medication is stopped ? this can develop within a few days. KNOW YOUR RESPONSIBILITIES It is important to know exactly how much and how often to take the opioid pain medications you are prescribed. Never take opioids in higher amounts or more often than prescribed. Do not combine opioids with alcohol or other drugs that cause drowsiness, such as benzodiazepines, also known as benzos,including diazepam and alprazolam, muscle relaxants or sleep aids. Never sell or share prescriptionopioids. This is illegal. Store opioids in a secure place and out of reach of others (including children, family, friends and visitors). The last page(s) of this document has been signed and retained as a CHART COPY Signatures Patient Education Materials COVID-19 Prevent the Spread of COVID-19 If You Are Sick (07/11/2019)(CUSTOM) Medication Leaflets My discharge plan and instructions have been reviewed and explained to me and I,SHERIF BONILLAtand my current condition and have read and understand these discharge instructions. I have received a written copy of the plan/instructions. If I have questions, I am aware that I should contact my doctor. Patient/Personnel Interviewer Signature: Date/Time: Relationship to Patient: Witness Name/Signature: [id number] Note ORIGINAL EXAMINATION: ONE XRAY VIEW OF THE CHEST 10/27/2021 8:17 pm COMPARISON: November 12, 2018 HISTORY: ORDERING SYSTEM PROVIDED HISTORY: Reason for Exam: cough FINDINGS: The heart is normal in size and there is no vascular congestion present. No consolidation, atelectasis or pleural fluid seen. No osseous finding. IMPRESSION: Normal exam. Interpreted by: Maxwell Torres MD Preliminary Report By: Maxwell Torres MD Electronically signed By Maxwell Torres MD Dictated Date: 10/27/2021 8:18:17 PM Prelim Date: 10/27/2021 8:18:36 PM Sign Date: 10/27/2021 8:18:36 PM Ordering Provider: [facility]09-05-2022 Note ORIGINAL EXAMINATION: ONE XRAY VIEW OF THE CHEST 10/27/2021 8:17 pm COMPARISON: November 12, 2018 HISTORY: ORDERING SYSTEM PROVIDED HISTORY: Reason for Exam: cough FINDINGS: The heart is normal in size and there is no vascular congestion present. No consolidation, atelectasis or pleural fluid seen. No osseous finding. IMPRESSION: Normal exam. Interpreted by: Maxwell Torres MD Preliminary Report By: Maxwell Torres MD Electronically signed By Maxwell Torres MD Dictated Date: 10/27/2021 8:18:17 PM Prelim Date: 10/27/2021 8:18:36 PM Sign Date: 10/27/2021 8:18:36 PM Ordering Provider: [facility]09-02-2022 Instructions* Patient Instructions* Brooke Smith APRN.CNP - 10/24/2021 3:23 PM EDT Shawna Gorman, It was good to talk with you today. Below is a summary of the plan that we discussed during your appointment for reference. Of course, if you have any questions or concerns do not hesitate to reach out to me via a message or call. Best, Brooke Smith APRN.CNP PLAN AND FOLLOW UP: YOU SHOULD SEEK IMMEDIATE MEDICAL ATTENTION AT THE NEAREST EMERGENCY DEPARTMENT OR BY CALLING 911, IF ANY OF THE FOLLOWING OCCURS: - New or worsening thoughts of harming yourself (suicidal thoughts) or others (homicidal thoughts) - Not feeling safe at home or worrying about your ability to remain safe at home If you are having thoughts of harming yourself or others, then you can: - Call the National Suicide Hotline at 2-307-YPREEZT ( ) or 4-857-994-TALK (6119) - Text 1XGPZ to 270394 Medication Update: Paxil 30 mg - take 1 tablet at bedtime 2. Continue hydroxyzine and Ativan at the same dose as needed for increased episodes of anxiety. Next appointment: --Schedule in 4 to 6 weeks or sooner if needed -- You may call the department appointment line at [phone] to schedule your appointment. -- Please call my nurse Yudi at [phone] or send me a message in [facility] with any questions or concerns between appointments. [facility] History of Present illness Narrative* Brooke Smith APRN.MISA - 10/24/2021 3:02 PM EDT Images from the original note were not included. PSYC FOLLOW UP - PSYCHIATRIC PROGRESS NOTE DIAGNOSIS: Panic disorder without agoraphobia Generalized Anxiety Disorder GAF: -70-61 Some mild symptoms or some difficulty in social, occupational, or school functioning, but generally functioning pretty well. TREATMENT PLAN: Increase Paxil to address his anxiety and sleep difficulties at night. Continue Hydroxyzine and Ativan as needed. Follow up in 4 to 6 weeks. Medication Update: Paxil 30 mg - take 1 tablet at bedtime 2. Continue hydroxyzine and Ativan at the same dose as needed for increased episodes of anxiety. The effects and side effects of all the medications were reviewed in detail with the patient. PDMP report was reviewed and found to be appropriate without any signs of misuse or diversion. Patient isin agreement with the treatment plan and aware to reach out with any questions, concerns, or worsening of symptoms prior to the next appointment. CC: Follow up regarding anxiety With the patient consent, visit was performed virtually. HPI: Sherif Bonilla is a 36 year old Male with a history of TOMAS and Panic disorder presenting today for follow-up. Date of last visit: 09/29/2021 Plan from last visit: 1. Start Paxil to address his severe anxiety symptoms. 2. Utilize Ativan as needed to manage his panic symptoms. 3. Continue hydroxyzine as needed for increased feelings of anxiety. Today Sherif shares that he has been doing okay. Has noticed an upset stomach with the Paxil at times. Sleep is still an issue. He is sleeping only 4 to 6 hours at night. When he wakes up he feels very anxious and has a hard time going back to sleep. He has used Ativan only as needed. Vistaril does help him fall asleep but not stay asleep. Denies changes in his appetite or weight. 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 Patient is excited about this change. Interval Progress: Improved Risks and benefits of the medication, including any black box warnings, were discussed with the patient. Social History: See HPI PATIENT DATA: Generalized Anxiety Disorder Scale (TOMAS-7) TOMAS - 7 SCORES 08/29/2021 09/22/2021 10/23/2021 TOMAS-7 Score 16 17 10 (0-4) minimal anxiety, (5-9) mild anxiety, (10-14) moderate anxiety, (15-21) severe anxiety Patient Health Questionnaire (PHQ-9) PHQ-9 08/29/2021 09/22/2021 10/23/2021 Score 13 10 9 (0-4) minimal depression, (5-9) mild depression, (10-14) moderate depression, (15-19) moderately severe depression, (20-27) severe depression ROS: General: Negative for fever, malaise, unintentional weight loss HEENT: Negative for recent changes in vision or hearing, no nasal drainage Respiratory: Negative for cough, wheezing or SOB Cardiovascular: Negative for chest pain GI: Negative for nausea, vomiting, change in bowel habits MUSCULOSKELETAL: Negative for acute back or joint pain SKIN: Negative for rash NEURO: Negative for headaches, seizures, focal neurological deficits All other systems negative. VITAL SIGNS: BP Temp Pulse Resp SpO2 MENTAL STATUS EXAMINATION: Appearance: Appropriately groomed, appears stated age Behavior: Appropriately engaged Psychomotor: No psychomotor agitation Cognition Level of Consciousness: Awake and alert. No fluctuation in wakefulness. Orientation: Grossly oriented Memory: Intact Attention/Concentration: Good Fund of Knowledge: Able to demonstrate an awareness of current events. Mood: Mildly anxious Affect: Congruent to mood Speech/Language: Appropriate tone, prosody, angelica, phonetics, and syntax Thought Form: Goal-directed. No loosening of associations. Thought Content: No delusions noted or endorsed. Perceptual Disturbances: Did not appear to respond to auditory stimuli. Safety: Suicidal Ideations: No suicidal ideation, intent or plan. Homicidal Ideations: No homicidal ideation, intent or plan. Insight: Appropriate Judgment: Appropriate I spent a total of 28 minutes on the date of the service which included preparing to see the patient, [id number] patient care, completing clinical documentation, and counseling and educating the patient/family/caregiver, ordering medications/labs. Brooke Smith APRN.MISA October 24, 2021 3:02 PM This note was partially generated using [employer] voice recognition system. Note was reviewed for accuracy. There may be minor misspellings or grammar miscues with [employer] voice recognition. documented in this encounter[facility] History of Present illness Narrative* Samuel Pressley MD - 10/14/2021 3:51 PM EDT Chief Complaint Patient presents with: Physical HPI Sherif Bonilla is a 36 year old male who presents here today for annual physical. Patient had appointment with Psychiatry CONVEYOR ATTENDANT Brooke on 09/29 and was started on Paxil and ativan PRN. States that his symptoms are starting to improve and worrying a little bit less. Symptoms are worst inthe morning. Has not needed the ativan at all. Has been taking vistaril about 2 times per day for panic symptoms. Has follow up appointment with their office on 10/24. Denies SI/HI. Does get some stomach upset right after taking Paxil. Frequent urination has improved with him cutting back on caffeinated beverages. Labs from last OV were unremarkable. Still complaining continue muscle twitching about once per day and now feels like when he lies in bed at night he has to move his legs. States that his hand or finger will jerk repeatedly for about a minute before stopping on its own. Following up with Milana Muñoz for periumbilical keloid. Biopsy was benign. Working on getting appointment for removal. Patient overdue for repeat colonoscopy. Found 10 mm polyp in 2015 with recommendation to f/u in 3 years. Past medical history, appointments, medications, allergies reviewed. Previous Medical History PAST MEDICAL HISTORY Diagnosis Date Anxiety Colon polyp Dysthymic disorder Depression (non-psychotic) Irritable bowel syndrome Irritable bowel Keloid scar umbilicus Obesity (BMI 30-39.9) Tobacco use Previous Surgical History PAST SURGICAL HISTORY Procedure Laterality Date COLONOSCOPY FLX DX W/COLLJ SPEC WHEN PFRMD 2009 Colonoscopy COLONOSCOPY FLX DX W/COLLJ SPEC WHEN PFRMD 11/13/2015 Colonoscopy (MAC), tubular adenoma. repeat in 3 years ESOPHAGOGASTRODUODENOSCOPY TRANSORAL DIAGNOSTIC 11/13/15 EGD (MAC) LAPS SURG CHOLECYSTECTOMY W/CHOLANGIOGRAPHY 03-10-13 PAST SURGICAL HISTORY OF mole removal, back VASECTOMY UNI/BI SPX W/POSTOP SEMEN EXAMS 03/20/09 Family History FAMILY HISTORY Problem Relation Age of Onset Psychiatry Mother Depression Diabetes Mother other (Other) Father ETOH Psychiatry Maternal Grandmother depression Breast Cancer Maternal Grandmother other (stills disease) Maternal Grandmother Diabetes Maternal Grandfather Cancer Maternal Grandfather leukemia Ischemic Heart Disease Paternal Grandfather Fatal NH age 37 Psychiatry Sister anxiety/panic Patient Allergies ALLERGIES Allergen Reactions Doxycycline Other: See Comments Skin starts dying Keflex [Cephalexin] Other: See Comments Caused fingers to start turning black-uncertain if Keflex but they are pretty sure Morphine Penicillins Prednisone Hives Current Medications Current Outpatient Medications on File Prior to Visit Medication Sig hydrOXYzine Pamoate 100 mg capsule Take 1 capsule by mouth three times daily as needed. PARoxetine (PAXIL) 20 mg tablet Take 0.5 tablets by mouth daily at bedtime for 7 days, THEN 1 tablet daily at bedtime. LORazepam (ATIVAN) 0.5 mg Take 1 tablet by mouth once daily as needed for up to 30 days. No current facility-administered medications on file prior to visit. Social History Social History Tobacco Use Smoking status: Former Packs/day: 1.00 Years: 15.00 Pack years: 15.00 Types: Cigarettes Quit date: 08/11/2021 Years since quittin.1 Smokeless tobacco: Never Vaping Use Vaping Use: Never used Substance Use Topics Alcohol use: No Drug use: No Review of Symptoms REVIEW OF SYSTEMS GENERAL: No weight loss, malaise or fevers HEENT: Negative for frequent or significant headaches, No changes in hearing or vision, no nose bleeds or other nasal problems NECK: Negative for lumps, goiter, pain and significant neck swelling RESPIRATORY: Negative for cough, hemoptysis, wheezing, COPD, dyspnea or shortness of breath CARDIOVASCULAR: Negative for chest pain, leg swelling, hypertension, CHF or palpitations GI: No nausea, vomiting, or diarrhea : No history of dysuria, frequency or incontinence MUSCULOSKELETAL: Negative for joint pain or swelling, back pain or muscle pain SKIN: Negative for lesions, rash, and itching EXAM: BP 124/70 Pulse 68 Resp 16 Ht 175.5 cm (5' 9.09 ) Wt 108.5 kg (239 lb 1.6 oz) SpO2 97% BMI 35.21 kg/m General Appearance: Well appearing, alert, in no acute distress, well-hydrated, well nourished.. Skin: Skin color, texture, turgor normal, no suspicious rashes or lesions. Large keloid inferior toumbilicus. Head: Normocephalic, no masses, lesions, tenderness or abnormalities. Eyes: Anicteric sclera. Pupils are equally round and reactive to light. Extraocular movements are intact. . Ears: External ears normal, canals clear. Neck: Supple, no adenopathy; thyroid symmetric, normal size, no bruits. Lungs: Lungs clear to auscultation. No wheezing, rhonchi, rales.. Heart: RRR without murmur, gallop, or rubs. No ectopy. Abdomen: Normal abdominal exam, Abdomen soft, non-tender. Bowel sounds normal. No masses, organomegaly. Extremities: No deformities, edema, skin discoloration, clubbing or cyanosis. Good capillary refill. . Health Maintenance List HEPATITIS B(1 of 3 - 3-dose series) Never done DTAP,TDAP,TD(1 - Tdap) Never done COLORECTAL CANCER SCREENING due on 11/12/2018 COVID-19 VACCINE(3 - Booster for Pfizer series) due on 12/04/2020 INFLUENZA(1) due on 10/23/2021 LIPID SCREEN due on 05/06/2023 HEPATITIS C SCREENING Completed HIV SCREENING Completed Data reviewed Component Latest Ref Rng & Units 09/26/2021 Protein, Total 6.3 - 8.0 g/dL 7.2 Albumin 3.9 - 4.9 g/dL 4.5 Calcium 8.5 - 10.2 mg/dL 9.3 Bilirubin, Total 0.2 - 1.3 mg/dL 0.3 Alkaline Phosphatase 38 - 113 U/L 123 (H) AST 14 - 40 U/L 28 ALT 10 - 54 U/L 49 Glucose 74 - 99 mg/dL 95 BUN 9 - 24 mg/dL 11 Creatinine 0.73 - 1.22 mg/dL 0.91 Sodium 136 - 144 mmol/L 140 Potassium 3.7 - 5.1 mmol/L 4.1 Chloride 97 - 105 mmol/L 106 (H) CO2 22 - 30 mmol/L 24 Anion Gap 9 - 18 mmol/L 10 eGFR >=60 mL/min/1.73m 113 WBC 3.70 - 11.00 k/uL 9.05 RBC 4.20 - 6.00 m/uL 5.81 Hemoglobin 13.0 - 17.0 g/dL 16.4 Hematocrit 39.0 - 51.0 % 49.5 MCV 80.0 - 100.0 fL 85.2 MCH 26.0 - 34.0 pg 28.2 MCHC 30.5 - 36.0 g/dL 33.1 RDW-CV 11.5 - 15.0 % 12.5 Platelet Count 150 - 400 k/uL 233 MPV 9.0 - 12.7 fL 12.1 Absolute nRBC <0.01 k/uL <0.01 Hemoglobin A1C 4.3 - 5.6 % 4.8 Estimated Average Glucose mg/dL 91 TSH 0.270 - 4.200 mIU/L 2.200 Free T4 0.9 - 1.7 ng/dL 1.2 ASSESSMENT/PLAN: 1. Annual physical exam - ICD9: V70.0, ICD10: Z00.00 (primary diagnosis) - Counseled on healthy diet and regular exercise - Discussed need for and benefit of weight loss. BMI 35.21 kg/(m^2) - Follow up for annual exam in one year - LIPID PANEL, NONFASTING 2. Muscle twitching - ICD9: 781.0, ICD10: R25.3 Workup thus far has been normal. Possible focal seizure activity. Will obtain EEG and refer to neurology for further evaluation. Red flags for re-assessment reviewed with patient in detail. - CONSULT TO NEUROLOGY - EPIL EEG ROUTINE 3. Tremor - ICD9: 781.0, ICD10: R25.1 No tremor noted on exam today. - CONSULT TO NEUROLOGY - EPIL EEG ROUTINE 4. RLS (restless legs syndrome) - ICD9: 333.94, ICD10: G25.81 Obtain iron levels. Hold off on mirapex or requip as this could exacerbate tremors/twitching. - IRON + TIBC - FERRITIN BLD 5. Iron deficiency - ICD9: 280.9, ICD10: E61.1 - IRON + TIBC - FERRITIN BLD 6. History of colonic polyps - ICD9: V12.72, ICD10: Z86.010 - CONSULT TO GENERAL SURGERY 7. Need for vaccination - ICD9: V05.9, ICD10: Z23 - TDAP VACCINE AGE 7+ IM 8. Anxiety and depression - ICD9: 300.00, 311, ICD10: F41.9, F32.A Improved on Paxil and vistaril. Keep f/u with psychiatry. Contracted for safety. 9. Keloid scar - ICD9: 701.4, ICD10: L91.0 F/u with dermatology for removal. Samuel Pressley MD documented in this encounterSelect [facility] Instructions* Patient Instructions* Brooke Smith APRN.CNP - 09/29/2021 1:58 PM EDT Shawna Gorman, It was good to meet and talk with you today. Below is a summary of the plan that we discussed during your appointment for reference. Of course, if you have any questions or concerns do not hesitate to reach out to me via a message or call. Brooke Pro APRN.CNP PLAN AND FOLLOW UP: YOU SHOULD SEEK IMMEDIATE MEDICAL ATTENTION AT THE NEAREST EMERGENCY DEPARTMENT OR BY CALLING 911, IF ANY OF THE FOLLOWING OCCURS: - New or worsening thoughts of harming yourself (suicidal thoughts) or others (homicidal thoughts) - Not feeling safe at home or worrying about your ability to remain safe at home If you are having thoughts of harming yourself or others, then you can: - Call the National Suicide Hotline at 5-512-JGSJOTY ( ) or 2-734-351-TALK (4149) - Text 4HOPE to 664266 Medication Update: - Paxil 20 mg - take 1/2 tablet once at bedtime for 7 days, then take 1 tablet at bedtime after that. - Ativan (Lorazepam) 0.5 mg - take 1 tablet once daily as needed for increased feelings of anxiety. - Continue Vistaril (hydroxyzine) as needed at the same dose. Next appointment: --Schedule in 4 weeks or sooner if needed -- You may call the department appointment line at [phone] to schedule your appointment. -- Please call my nurse Yudi at [phone] or send me a message in [facility] with any questions or concerns between appointments. documented in this encounterSelect [facility] History of Present illness Narrative* Brooke Smith APRN.CNP - 09/29/2021 1:01 PM EDT Images from the original note were not included. PSYC NEW - PSYCHIATRIC ASSESSMENT Patient was seen for an initial evaluation. With the patient consent, visit was performed virtually. All information is from Patient report except when noted. This evaluation is NOT intended for forensic, disability or child custody purposes. AGE: [age] year old RACE: White MARITAL STATUS: for 7 months. 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 REFERRAL SOURCE: [facility] Physician - Dr. Pressley and Self CHIEF COMPLAINT: I just want something consistent to help with my anxiety. HPI: Per Sanjeev Lewis [facility]'s note of 08/29/2021: Pt is 36yr old white male who has a h/o TOMAS, depression ns panic d/o -reported anxiety first occurred in 2003 when he was going into the [employer] -he was found to IIBS which prevented him from entering the national [employer] -it was at that time felt anxiety could be a contributing factor -was tx by PCP with variety of meds -h/obuspar sedated him -h/o lexapro increased anxiety through on line pschiatry -h/o prozac made anxiety was on for yrs then when he went back on made anxiety worse, couldn't leave his room -h/o wellbutrin -h/o celexa made me angry Currently taking Vistaril, works however wants something that will maintain -A&O x3, clear, coherent, no loose associations -casually dressed, appropriate to age/seaon, tatoos x5 -good eye contact -easily engages -verbal, spontaneous -rates anxiety #9/10 (scale 1-10 10=severe) does not interfere with job, does limit him going places for fear he will have panic attack -rates depression #2 (scale 1-10 10=severe) -denies current suicidal/homiicidal thoughts, plans or intent -no evidence of psychosis -no current a/v hallucinations -no evidence of delusional thoughts -feels tired all the -no triggers -will last half hour to an hour -pacing,crying, vomits -uses breathing tech, grounding and distracting self Barriers to tx- -fear of being judged -fear of being admitted to psych unit -fear of ex wanting custody again Loss -business Today Sherif shares that hydroxyzine is the only medication he is taking currently. He saw a CONVEYOR ATTENDANT online through [facility]. He was prescribed Celexa and Prozac but it made him more anxious. In the past,he has tolerated Prozac better. Hydroxyzine helps mildly with panic and anxiety symptoms but he continues to feel anxious all the time. My malaika never shuts off and I am always worrying . First started struggling with anxiety in 2001. [facility]. At that time, anxiety was not severe and it was manageable. He has a lot of court issues when he had his first daughter for custody purposes. He was prescribedProzac to help with his anxiety at that time. He then stopped the Prozac and only restarted in 2019when the pandemic hit and he lost his business. They went from being financially secure to living pay check to pay check. It helped him with anxiety symptoms for a short time. In 2020 he tried taking Prozac again, and noticed that he did not want to leave his bedroom. He thought it was an adjustment period but he could not tolerate. When he took Lexapro, he experienced a severe anxiety attack. He was prescribed Buspar years ago but it was prescribed as needed. He didn't use it at that time. It has been switched to hydroxyzine. He was prescribed Wellbutrin in the past for smoking cessation. It did not help with anxiety or mood. He is always worried that he is going to experience anxiety attack in public. He shares that he engages in rumination and catastrophic thinking. I can't get my thoughts to shut off . He experiences panic attacks every other day. He starts pacing and then begin to cry during these episodes. He theneventually throws up or his vistaril would kick in and he would sleep. He also notices that he is sh aking a lot. He does experience chest pain, nausea, sweating, and shortness of breath. He did try the Ativan while he was in the ER and it helped with his anxiety and sleep. Sleep: difficulty staying asleep, difficulty falling asleep, feels that his mind is racing. He wakes up feeling anxious or panicked. He tosses and turns all night. He takes vistaril every night to fall asleep but it is does not keep him asleep or prevent him from waking up with panic. Interest: no interest. He used to play games but he is not interested in even doing that. Guilt: a bit as his kids don't get to do a lot due to his anxiety. Feels that worries about him. Energy: low as he is not getting good sleep Concentration: fair. Has to force himself to focus. Anxiety interferes Appetite: fair. He has lost weight. His portions have decreased in size. Psychomotor Activity: psychomotor activity was WNL. Suicide: None Phobias: spiders, worries about losing his kids and letting his family down. Memory: Poor, Short term, Not as good as it used to be . Anxiety interferes and he zones out. Anxiety: severe and panic symptoms/attacks Obsessions: catastrophic and money/finances Compulsions: none Yolie: Racing of thoughts PTSD: The patient denies being expose to or witnessing traumatic events. Self Mutilation: Denies PAST MEDICAL HISTORY Diagnosis Date Anxiety Colon polyp Dysthymic disorder Depression (non-psychotic) Irritable bowel syndrome Irritable bowel Keloid scar umbilicus Obesity (BMI 30-39.9) Tobacco use PAST SURGICAL HISTORY Procedure Laterality Date COLONOSCOPY FLX DX W/COLLJ SPEC WHEN PFRMD 2009 Colonoscopy COLONOSCOPY FLX DX W/COLLJ SPEC WHEN PFRMD 11/13/2015 Colonoscopy (MAC), tubular adenoma. repeat in 3 years ESOPHAGOGASTRODUODENOSCOPY TRANSORAL DIAGNOSTIC 11/13/15 EGD (MAC) LAPS SURG CHOLECYSTECTOMY W/CHOLANGIOGRAPHY 03-10-13 PAST SURGICAL HISTORY OF mole removal, back VASECTOMY UNI/BI SPX W/POSTOP SEMEN EXAMS 03/20/09 Current Outpatient Medications Medication Sig Dispense Refill hydrOXYzine Pamoate 100 mg capsule Take 100 mg by mouth three times daily as needed. No current facility-administered medications for this visit. VITAL SIGNS: There were no vitals filed for this visit. ROS: His IBS has flared up due to increased anxiety. He has noticed some shakiness in his hands. Per [facility]'s note of 08/29/2021: PSYCHIATRIC HISTORY: Prior Diagnosis: Anxiety Disorder, Major Depressive Disorder and Panic Disorder Last Hospitalization: None Location of Hospitalization : N/A Reason for hospitalization/Length of Stay: N/A Psychiatrist/ VAULT KEEPER: Recently seen by on line Cerebral Therapist: recently with on line Cerebral Housing Assistant: None Mental Health Agency/Practice: on line care Did you the previous treatment helpful? somewhat ECT: no Previous Discontinued Psychiatric Med Trials: See HPI SUBSTANCE USE HISTORY: Nicotine: None. Stopped smoking and vaping July 2021 Caffeine: Sweet Tea, 2-3 cups/day Alcohol: No history of use or dependence Marijuana: No history of use or dependence Cocaine: No history of use or dependence Opiods: No history of use or dependence Per [facility]'s note of 08/29/2021: PFSH: Patient was born and raised in [place], [place], patient is the younger of 2 .. He describes his childhood as for the most part good. Patient reports significant childhood events -fa was ETOHic -fa beat mo -age 9 parents -saw fa infrequently -mo remarried, step fa was great, of liver cancer -mo remarried again, 3rd -relationship with mo close -relationship with fa calls x1 yrly -relationship with sister, in and out of snf, keeps distance, THE PATIENT lives with and 2 daughters. 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 denied any past legal history SPIRITUALITY/ROMAN CATHOLIC: Gnosticist FAMILY PSYCHIATRIC/SUBSTANCE USE HISTORY: Mother-Anxiety Disorder and Major Depressive Disorder, Father-Substance Abuse, Sister-Borderline Personality Disorder, Major Depressive Disorder and Substance Abuse, Maternal Grandmother-Anxiety Disorder and Major Depressive Disorder and Daughter anxiety Generalized Anxiety Disorder Scale (TOMAS-7) TOMAS - 7 SCORES 05/05/2018 08/29/2021 09/22/2021 TOMAS-7 Score 7 16 17 (0-4) minimal anxiety, (5-9) mild anxiety, (10-14) moderate anxiety, (15-21) severe anxiety Patient Health Questionnaire (PHQ-9) PHQ-9 07/11/2021 08/29/2021 09/22/2021 Score 8 13 10 (0-4) minimal depression, (5-9) mild depression, (10-14) moderate depression, (15-19) moderately severe depression, (20-27) severe depression PROMIS Global Health PROMIS Global Health - (T-Scores - the mean of general population = 50. Five points is a clinicallymeaningful difference.) 05/05/2018 07/11/2021 Physical T-Score 50.8 42.3 Mental T-Score 45.8 48.3 MENTAL STATUS EXAMINATION: Appearance: Well dressed, well groomed Behavior: Behaves appropriately during the encounter Social relatedness: Anxious/Nervousness Speech/Language: Rapid Mood: sad Anxious Affect: Full and appropriate to topic Orientation: Person, Place, Time and Situation Associations: Intact and linear Hallucinations: None Delusions: None Suicidal Ideation: No suicidal ideation, intent or plan. Homicidal Ideation: No homicidal ideation, intent or plan. Insight: Appropriate Judgment: Appropriate DIAGNOSIS: PRIMARY: Anxiety Disorder Panic Disorder - Without Agoraphobia SECONDARY: Anxiety Disorder Generalized Anxiety Disorder GAF: -50-41 Serious symptoms or any serious impairment in social, occupational or school functioning. PLAN: 1. Start Paxil to address his severe anxiety symptoms. 2. Utilize Ativan as needed to manage his panic symptoms. 3. Continue hydroxyzine as needed for increased feelings of anxiety. Medication Update: - Paxil 20 mg - take 1/2 tablet once at bedtime for 7 days, then take 1 tablet at bedtime after that. - Ativan (Lorazepam) 0.5 mg - take 1 tablet once daily as needed for increased feelings of anxiety. - Continue Vistaril (hydroxyzine) as needed at the same dose. The effects and side effects of all the medications were reviewed in detail with the patient. He isin agreement with the treatment plan and aware to reach out with any questions, concerns, or worsening of symptoms. PDMP report was reviewed and found to be appropriate without any signs of misuse ordiversion. DISPOSITION: Follow up with this provider in 4 weeks. I spent a total of 90 minutes on the date of the service which included preparing to see the patient, [id number] patient care, completing clinical documentation, obtaining and/or reviewing separately obtained history, counseling and educating the patient/family/caregiver, ordering medications, day ts, or procedures, communicating with other HCPs (not separately reported), independently interpreting results (not separately reported), and communicating results to the patient/family/caregiver. ADD ON PSYCHOTHERAPY CODE : No SIGNATURE: Brooke Smith APRN.CNP PATIENT NAME: Sherif Bonilla DATE: September 29, 2021 TIME: 1:01 PM PAGER : documented in this encounterSelect [facility] History of Present illness Narrative* Samuel Pressley MD - 09/26/2021 9:08 AM EDT Chief Complaint Patient presents with: shaking in arm and hand: right Musculoskeletal Problem: leg weakness HPI Sherif Bonilla is a 36 year old male who presents here today for Above Complaints.. Patient states that in the last 4-6 he has noticed that he has had episodes of shaking in his hands/arms, intermittent leg weakness/fatigue, and frequent urination up to 5 times per hour. These episodes occur about every 2 days and shaking will last until he eats or drinks something and can last upto 15 minutes. Leg fatigue described as jelly legs without falls or difficulty walking or liftinghis legs. Quit smoking on August 11 and has been avoiding caffeine. Denies other illicit drug use. Denies dysuria, hematuria, nausea, vomiting, flank pain, lower abdomen, syncope, slurred speech, facial droop, vision changes, paresthesias, seizure activity. Has appointment with psychiatry CONVEYOR ATTENDANT on Wednesday to start him on rx for anxiety. States his anxiety hasbeen bad recently without SI/HI. Past medical history, appointments, medications, allergies reviewed. Previous Medical History PAST MEDICAL HISTORY Diagnosis Date Anxiety Colon polyp Dysthymic disorder Depression (non-psychotic) Irritable bowel syndrome Irritable bowel Keloid scar umbilicus Obesity (BMI 30-39.9) Tobacco use Previous Surgical History PAST SURGICAL HISTORY Procedure Laterality Date COLONOSCOPY FLX DX W/COLLJ SPEC WHEN PFRMD 2009 Colonoscopy COLONOSCOPY FLX DX W/COLLJ SPEC WHEN PFRMD 11/13/2015 Colonoscopy (MAC), tubular adenoma. repeat in 3 years ESOPHAGOGASTRODUODENOSCOPY TRANSORAL DIAGNOSTIC 11/13/15 EGD (MAC) LAPS SURG CHOLECYSTECTOMY W/CHOLANGIOGRAPHY 03-10-13 PAST SURGICAL HISTORY OF mole removal, back VASECTOMY UNI/BI SPX W/POSTOP SEMEN EXAMS 03/20/09 Family History FAMILY HISTORY Problem Relation Age of Onset Psychiatry Mother Depression Diabetes Mother other (Other) Father ETOH Psychiatry Maternal Grandmother depression Breast Cancer Maternal Grandmother other (stills disease) Maternal Grandmother Diabetes Maternal Grandfather Cancer Maternal Grandfather leukemia Ischemic Heart Disease Paternal Grandfather Fatal NH age 37 Psychiatry Sister anxiety/panic Patient Allergies ALLERGIES Allergen Reactions Doxycycline Other: See Comments Skin starts dying Keflex [Cephalexin] Other: See Comments Caused fingers to start turning black-uncertain if Keflex but they are pretty sure Morphine Penicillins Prednisone Hives Current Medications Current Outpatient Medications on File Prior to Visit Medication Sig hydrOXYzine Pamoate 100 mg capsule Take 100 mg by mouth three times daily as needed. HYDROcodone-acetaminophen (NORCO) 5-325 mg per tablet Take 1 tablet by mouth every 6 hours as needed for pain. (Patient not taking: Reported on 08/08/2021) clindamycin (CLEOCIN) 300 mg capsule Take 300 mg by mouth every 6 hours. For 7 days (Patient not taking: Reported on 08/08/2021 ) No current facility-administered medications on file prior to visit. Social History Social History Tobacco Use Smoking status: Former Smoker Packs/day: 1.00 Years: 15.00 Pack years: 15.00 Quit date: 08/11/2021 Years since quittin.1 Smokeless tobacco: Never Used Vaping Use Vaping Use: Never used Substance Use Topics Alcohol use: No Drug use: No Review of Symptoms REVIEW OF SYSTEMS See HPI EXAM: BP 110/70 Pulse 77 Resp 16 Wt 110.6 kg (243 lb 12.8 oz) SpO2 97% BMI 37.07 kg/m General Appearance: Well appearing, alert, in no acute distress, well-hydrated, well nourished.. Skin: Skin color, texture, turgor normal, no suspicious rashes or lesions. Neck: Supple, no adenopathy; thyroid symmetric, normal size, no bruits. Lungs: Lungs clear to auscultation. No wheezing, rhonchi, rales.. Heart: RRR without murmur, gallop, or rubs. No ectopy. Abdomen: Normal abdominal exam, Abdomen soft, non-tender. Bowel sounds normal. No masses, organomegaly. Extremities: No deformities, edema, skin discoloration, clubbing or cyanosis. Good capillary refill. Neurologic: Negative findings: speech normal, mental status intact, cranial nerves 2-12 intact, muscle tone normal, muscle strength normal, sensation to light touch and pinprick normal, reflexes normal and symmetric, Positive findings: mild essential tremor bilaterally on finger to nose test. Health Maintenance List DTAP,TDAP,TD(1 - Tdap) Never done COLORECTAL CANCER SCREENING due on 11/12/2018 COVID-19 VACCINE(3 - Booster for Pfizer series) due on 12/04/2020 INFLUENZA(1) due on 10/23/2021 LIPID SCREEN due on 05/06/2023 HEPATITIS C SCREENING Completed HIV SCREENING Completed ASSESSMENT/PLAN: 1. Frequent urination - ICD9: 788.41, ICD10: R35.0 (primary diagnosis) Obtain labs to rule out DM and will obtain UA for possible infection. Will call with results. - CBC - COMP METABOLIC PANEL - HGB A1C - TSH BLD - URINALYSIS, WITH MICROSCOPIC 2. Tremor - ICD9: 781.0, ICD10: R25.1 Obtain labs as ordered. Discussed may be 2/2 uncontrolled anxiety and will keep his scheduled appointment with psychiatry to discuss rx. - CBC - COMP METABOLIC PANEL - HGB A1C - TSH BLD - URINALYSIS, WITH MICROSCOPIC - T4 FREE/FREE THYROX 3. Leg fatigue - ICD9: 729.89, ICD10: R29.898 1 episode with normal exam today. Check. - CBC - COMP METABOLIC PANEL - HGB A1C - TSH BLD - URINALYSIS, WITH MICROSCOPIC Samuel Pressley MD documented [facility] Miscellaneous Notes* Telephone Encounter - Cheryl Trinh RN - 09/25/2021 2:31 PM EDT Sherif called back. He advised that he does not want to drive to [place] to be seen. He would like for his office notes and referral to be faxed to [facility] at fax [phone]. Medical records faxed. Fax confirmation sheet received. Cheryl Trinh RN * Telephone Encounter - Imelda Tyler LPN - 09/25/2021 1:11 PM EDT Patient called and had concern that has not been contact by [facility] surgery to reschedule appointment. Patient did have an appointment scheduled for 09/01/21 that was canceled, This nurse called Dr Valdez (plastic surgeon) office at [facility] and spoke to [place], and updated onpatients concerns [facility] would call patient to set an appointment. Imelda Tyler LPN documented in this encounterSelect [facility]-04-2022 Miscellaneous Notes* Telephone Encounter - Celina Giordano Ma - 09/25/2021 1:30 PM EDT Spoke to patient and scheduled Celina Giordano Ma * Telephone Encounter - Samuel Pressley MD - 09/25/2021 1:23 PM EDT I would recommend he come in for an earlier visit so we can discuss his symptoms and place appropriate orders after discussing what is going on. * Telephone Encounter - My Dykes RN - 09/25/2021 1:14 PM EDT Pt called in and reports he had seen provider recently as he was having health issues. States his hands are still shaking and his legs still feel weak. Pt was asking if provider would run the whole panel of lab tests on him prior to his appointment on 10/14/21 to see if they can find out what is wrong with him. Pended normal labs, not sure what else provider would want. Please call Pt once labs are ordered. documented in this encounterSelect [facility]30-[facility]22 Miscellaneous Notes* Telephone Encounter - aSnjeev Lewis ENA - 08/21/2021 10:45 AM EDT BEHAVIORAL HEALTH SOCIAL WORK CONSULT NOTE Service Date: August 21, 2021 Patient was identified by name and Patient: Sherif B[place]grass [address] [facility] [id number] (home) [phone] (cell) PCP: Samuel Pressley MD [address] [facility] [id number] Patient identified for [facility] from: PCP (Dr Pressley) Reason for referral: Resources Behavioral Health Resources: Psychology - talk therapy (Anxiety and depression/Panic disorder) [facility] encounter type: MyChart Message Assessment: [facility] received a consult from Dr Pressley, for psychology, to address Anxiety and depression/Panic disorder [facility] reviewed Pt's chart/insurance [facility] contacted Pt -h/o anxiety, panic attacks on daily basis -involved in on line virtual counseling, cerebral program -not finding it helpful -takes vistaril prn -wants something that is going to tx his anxiety/panic on going -wants to psychiatry -scheduled assessment for 08-29-21 at 2pm virtual -sent lizeth msg with appt info, consent for tx, PHQ9 and GAD7 Medications: Current Outpatient Medications on File Prior to Visit Medication Sig HYDROcodone-acetaminophen (NORCO) 5-325 mg per tablet Take 1 tablet by mouth every 6 hours as needed for pain. (Patient not taking: Reported on 08/08/2021) clindamycin (CLEOCIN) 300 mg capsule Take 300 mg by mouth every 6 hours. For 7 days (Patient not taking: Reported on 08/08/2021 ) hydrOXYzine Pamoate 100 mg capsule Take 100 mg by mouth three times daily as needed. No current facility-administered medications on file prior to visit. Curbside: No Screening Tools: No Substance Use / Abuse: No Outcome / Plan / Referrals: Attempts to Outreach: 2 attempts Referral made: Psychology - Internal Psychology-Internal referral type: (scheduled assessment for 08-29-21 at 2pm virtual) Final Disposition: Care established with (scheduled assessment for 08-29-21 at 2pm virtual,sentlizeth whaley marioith appt info, consent for tx, phq9 and gad7) Patient Discharged?: Yes Patient reported that caregiver was able to meet their needs today?: Yes Internal Referrals : Yes -Patient advised of treatment options available at [facility]. Patient was informed that they will be moving on for further evaluation if seeking treatment within the [facility] system. Reason for External Referrals : N/A Intervention: Scheduled Assessment Offered virtual visit Resources Provided: Further evaluation and assessment Virtual Visit Time Spent: 15 minutes ENA Villa documented in this encounterSelect [facility]05-26-[facility]22 History of Present illness Narrative* My Coto PA-C - 07/17/2021 4:56 PM EDT HISTORY AND PHYSICAL Sherif Gutierrez Igor 1985 REFERRING PHYSICIAN: Samuel Pressley,* CHIEF COMPLAINT: Recurrent abscess at umbilical incision HPI: Sherif is a 36 year old male with a complaint of recurrent issues with pain and drainage near his umbilicus. Patient notes he is a keloid former and formed a keloid at umbilical port site from prior laparoscopic cholecystectomy. He states he has had issues with this site on and off over the last year. It will intermittently become very tender and sometimes drains and bleeds. Patient was recently evaluated in the ED at [facility] for worsening pain at this site. He had a CT scan which showed mild thickening of the subcutaneous fat of abdominal wall near the umbilicus. He wasdiagnosed with cellulitis and initiated on antibiotics. He notes over the last couple of days this area became swollen and tight, and has since opened up and started draining purulent and bloody fluid. Noted some improvement in symptoms since this happened. SIGNIFICANT MEDICAL PROBLEMS: PAST MEDICAL HISTORY Diagnosis Date Anxiety Colon polyp Dysthymic disorder Depression (non-psychotic) Irritable bowel syndrome Irritable bowel Keloid scar umbilicus Obesity (BMI 30-39.9) Tobacco use OPERATIONS: PAST SURGICAL HISTORY Procedure Laterality Date COLONOSCOPY FLX DX W/COLLJ SPEC WHEN PFRMD 2009 Colonoscopy COLONOSCOPY FLX DX W/COLLJ SPEC WHEN PFRMD 11/13/2015 Colonoscopy (MAC), tubular adenoma. repeat in 3 years ESOPHAGOGASTRODUODENOSCOPY TRANSORAL DIAGNOSTIC 11/13/15 EGD (MAC) LAPS SURG CHOLECYSTECTOMY W/CHOLANGIOGRAPHY 03-10-13 PAST SURGICAL HISTORY OF mole removal, back VASECTOMY UNI/BI SPX W/POSTOP SEMEN EXAMS 03/20/09 CURRENT MEDICATIONS: Current Outpatient Medications Medication Sig Dispense Refill HYDROcodone-acetaminophen (NORCO) 5-325 mg per tablet Take 1 tablet by mouth every 6 hours as needed for pain. clindamycin (CLEOCIN) 300 mg capsule Take 300 mg by mouth every 6 hours. For 7 days hydrOXYzine Pamoate 100 mg capsule Take 100 mg by mouth three times daily as needed. FLUoxetine (PROZAC) 40 mg capsule Take 1 capsule by mouth once daily. (Patient not taking: Reportedon 07/24/2020 ) 30 capsule 5 No current facility-administered medications for this visit. ALLERGIES: Doxycycline, Keflex [Cephalexin], Morphine, Penicillins, and Prednisone PERSONAL HISTORY: Social History Tobacco Use Smoking status: Current Every Day Smoker Packs/day: 1.00 Years: 15.00 Pack years: 15.00 Smokeless tobacco: Never Used Tobacco comment: vape Substance Use Topics Alcohol use: No Drug use: No FAMILY HISTORY: FAMILY HISTORY Problem Relation Age of Onset Psychiatry Mother Depression Diabetes Mother other (Other) Father ETOH Psychiatry Maternal Grandmother depression Breast Cancer Maternal Grandmother other (stills disease) Maternal Grandmother Diabetes Maternal Grandfather Cancer Maternal Grandfather leukemia Ischemic Heart Disease Paternal Grandfather Fatal NH age 37 Psychiatry Sister anxiety/panic REVIEW OF SYMPTOMS: The review of systems data was entered by the nurse and reviewed by nm Nursing Notes: Ivana Chery RN 07/14/2021 1:50 PM Signed REVIEW OF SYSTEMS: General: The patient NOTES fatigue, denies weight loss, denies weight gain, denies feeling hot, anddenies feelings of cold. Eyes: The patient denies glaucoma, denies eye injury/surgery, does not wear glasses or contacts. Ear/Nose/Throat: The patient denies allergies, denies hayfever, denies ear infections, and denies bloody noses. Cardiovascular: The patient denies chest pain, denies heart disease, denies high blood pressure,denies cardiac stent, denies prior heart attack, denies irregular heart beat, denies high cholesterol, denies poor circulation, denies heart failure, other cardiac issues, denies claudication, denies cold feet, denies peripheral arterial stent. Respiratory: The patient denies tuberculosis, NOTES pneumonia, denies frequent cough, denies pulmonary embolism, denies shortness of breath, and denies coughing up blood. Gastrointestinal: The patient denies difficulty swallowing, NOTES acid reflux, denies ulcers, denies vomiting, denies jaundice/hepatitis, NOTES gallbladder problems, denies black or tarry stools, NOTES hemorrhoids, denies bleeding from rectum, denies diverticulitis, NOTES constipation, NOTES diarrhea, denies loss of stool control, and denies hernias. Kidney/Bladder: The patient denies kidney stones, denies urine infections, and denies bloody urine. Skin: The patient denies a history of skin cancer, NOTES bleeding/changing moles, and denies a history of skin rash. Neurologic: The patient denies a history of epilepsy/convulsions, NOTES headaches, denies head/spinal injuries, and denies stroke/TIA. Psychiatric: The patient denies psychiatric medications, denies depression, and denies voices, denies substance abuse. Endocrine: The patient denies thyroid disorders, denies diabetes, and hormonal problems. Hematologic: The patient denies a history of bruising, denies bleeding, and denies anemia, denies blood clots. Infections: The patient denies a history of measles and mumps, denies rheumatic fever, and denies sexually transmitted diseases. Musculoskeletal: The patient denies back pain/injury, NOTES back problems, denies sciatica, denies knee/foot trouble, denies arthritis, or denies gout. When was patient's last Mammogram screening? Last Colonoscopy: 2016 Ivana Chery RN I have confirmed and edited as necessary, the PFSH and ROS obtained by others. My Coto PA-C PHYSICAL EXAMINATION: General: The patient is 36 year old male, well nourished, well hydrated in no acute distress. The patient is oriented to time, place, and person. VITALS: Blood pressure 120/80, pulse 81, height 172.7 cm (5' 8 ), weight 113.4 kg (250 lb), SpO2 97%. Body mass index is 38.01 kg/m . HEENT: exam deferred Extremities: no clubbing, cyanosis or edema. No adenopathy. Other: +large irritated keloid scar at umbilicus with yellow/brown drainage expressed with palpation. No warmth or erythema LABORATORY VALUES: As Noted RADIOLOGIC STUDIES: As Noted Assessment IMPRESSION: chronically inflamed keloid PLAN: Case was reviewed with Dr. Brown, who also evaluated the patient and participated in development of the following plan. Dr. Brown recommended evaluation by plastic surgery for management of keloid to see if this will resolve the chronic drainage. No general surgical procedures or intervention re commended at this time. If symptoms do not resolve with management of keloid, discussed possible larger procedure in operating suite. Recommend in the meantime that patient cleanse the area with diluted hydrogen peroxide and keep this dry and covered. Patient verbalized understanding of all above and agreed with the plan. Diagnoses: (L91.0) Keloid (primary encounter diagnosis) (R10.33) Periumbilical abdominal pain (L02.211) Abscess of skin of abdomen Consultation requested by Dr. Pressley for an opinion regarding periumbilical pain, keloid, possibleabscess. My final recommendations will be communicated back to the requesting physician by way of shared Medical record or letter to requesting physician via US mail. My Coto PA-C documented in this encounterSelect [facility]22 History of Present illness Narrative* Laura Veras LPN - 07/17/2021 8:38 AM EDT Please see ED report from Jignesh: Scan on 07/17/2021 7:35 AM by External Provider: Consultation - Emergency Medicine Maritza Veras LPN documented in this encounterSelect [facility]05-23-2022 Instructions* Patient Instructions* My Coto PA-C - 07/14/2021 2:13 PM EDT -Referral to plastic surgery-call if you have not been contacted within the next week regarding an appointment -Keep wound clean, dry and covered documented in this encounterSelect Medical [facility]05-23-2022 Nurse Note* Ivana Chery RN - 07/14/2021 1:44 PM EDT REVIEW OF SYSTEMS: General: The patient NOTES fatigue, denies weight loss, denies weight gain, denies feeling hot, anddenies feelings of cold. Eyes: The patient denies glaucoma, denies eye injury/surgery, does not wear glasses or contacts. Ear/Nose/Throat: The patient denies allergies, denies hayfever, denies ear infections, and denies bloody noses. Cardiovascular: The patient denies chest pain, denies heart disease, denies high blood pressure,denies cardiac stent, denies prior heart attack, denies irregular heart beat, denies high cholesterol, denies poor circulation, denies heart failure, other cardiac issues, denies claudication, denies cold feet, denies peripheral arterial stent. Respiratory: The patient denies tuberculosis, NOTES pneumonia, denies frequent cough, denies pulmonary embolism, denies shortness of breath, and denies coughing up blood. Gastrointestinal: The patient denies difficulty swallowing, NOTES acid reflux, denies ulcers, denies vomiting, denies jaundice/hepatitis, NOTES gallbladder problems, denies black or tarry stools, NOTES hemorrhoids, denies bleeding from rectum, denies diverticulitis, NOTES constipation, NOTES diarrhea, denies loss of stool control, and denies hernias. Kidney/Bladder: The patient denies kidney stones, denies urine infections, and denies bloody urine. Skin: The patient denies a history of skin cancer, NOTES bleeding/changing moles, and denies a history of skin rash. Neurologic: The patient denies a history of epilepsy/convulsions, NOTES headaches, denies head/spinal injuries, and denies stroke/TIA. Psychiatric: The patient denies psychiatric medications, denies depression, and denies voices, denies substance abuse. Endocrine: The patient denies thyroid disorders, denies diabetes, and hormonal problems. Hematologic: The patient denies a history of bruising, denies bleeding, and denies anemia, denies blood clots. Infections: The patient denies a history of measles and mumps, denies rheumatic fever, and denies sexually transmitted diseases. Musculoskeletal: The patient denies back pain/injury, NOTES back problems, denies sciatica, denies knee/foot trouble, denies arthritis, or denies gout. When was patient's last Mammogram screening? Last Colonoscopy: 2015 Ivana Chery RN documented in this encounterSelect [facility]05-23-2022 History of Present illness Narrative* Samuel Pressley MD - 07/14/2021 11:15 AM EDT Chief Complaint Patient presents with: ER F/U: area swelled and burst open this am with bloody and purulent foul drainage HPI Sherif Boinlla is a 36 year old male who presents here today for Above Complaints.. Patient evaluated at [facility] ED yesterday For abdominal pain which had been worsening over the last 5 day. Had been taking Clindamycin for cellulitis for his abdomen and continued to have sharp pain overumbilical area. Noted some erythema and warmth over the lower abdomen and periumbilical area without fluctuance/drainage/discharge. No appreciable abscess on their exam. Workup did show leukocytosis of 13.5 with normal CMP. Lactate and lipase normal. UA negative/normal. CT scan of abdomen showed diverticulosis without diverticulitis and inflammatory changes to the abdominal wall without abscess. Given IV fluids, Zofran, and Ativan for anxiety while in the ED and symptoms did improve. Dischargedhome with recommendation to continue Clindamycin and given rx for short course of [place] for pain. Since discharge, Patient states he has been compliant with his clindamycin and required 1 dose of [place] this morning. When he woke up today, he had large amount of purulent/bloody drainage from his umbilicus. Packed the area with gauze and placed bandage over top. Has not had any fever/chills, nause a/vomiting. Pain has actually decreased since he had the drainage and states that his keloid scar in the ED yesterday was blown up like a balloon. Past medical history, appointments, medications, allergies reviewed. Previous Medical History PAST MEDICAL HISTORY Diagnosis Date Anxiety Colon polyp Dysthymic disorder Depression (non-psychotic) Irritable bowel syndrome Irritable bowel Keloid scar umbilicus Obesity (BMI 30-39.9) Tobacco use Previous Surgical History PAST SURGICAL HISTORY Procedure Laterality Date COLONOSCOPY FLX DX W/COLLJ SPEC WHEN PFRMD 2009 Colonoscopy COLONOSCOPY FLX DX W/COLLJ SPEC WHEN PFRMD 11/13/2015 Colonoscopy (MAC), tubular adenoma. repeat in 3 years ESOPHAGOGASTRODUODENOSCOPY TRANSORAL DIAGNOSTIC 11/13/15 EGD (MAC) LAPS SURG CHOLECYSTECTOMY W/CHOLANGIOGRAPHY 03-10-13 PAST SURGICAL HISTORY OF mole removal, back VASECTOMY UNI/BI SPX W/POSTOP SEMEN EXAMS 03/20/09 Family History FAMILY HISTORY Problem Relation Age of Onset Psychiatry Mother Depression Diabetes Mother other (Other) Father ETOH Psychiatry Maternal Grandmother depression Breast Cancer Maternal Grandmother other (stills disease) Maternal Grandmother Diabetes Maternal Grandfather Cancer Maternal Grandfather leukemia Ischemic Heart Disease Paternal Grandfather Fatal NH age 37 Psychiatry Sister anxiety/panic Patient Allergies ALLERGIES Allergen Reactions Doxycycline Other: See Comments Skin starts dying Keflex [Cephalexin] Other: See Comments Caused fingers to start turning black-uncertain if Keflex but they are pretty sure Morphine Penicillins Prednisone Hives Current Medications Current Outpatient Medications on File Prior to Visit Medication Sig Ipratropium (ATROVENT) 17 mcg/actuation inhaler Inhale 2 Puffs as instructed every 6 hours. (Patient not taking: Reported on 07/24/2020 ) Ybfmducmmlkyppt-Wvufqumwy-VF (BROMFED DM) 2-30-10 mg/5 mL syrup Take 10 mL by mouth four times daily as needed. (Patient not taking: Reported on 07/24/2020 ) oxymetazoline (AFRIN, OXYMETAZOLINE,) 0.05 % nasal spray Use 2 Sprays in the nose twice daily. (Patient not taking: Reported on 07/24/2020 ) FLUoxetine (PROZAC) 40 mg capsule Take 1 capsule by mouth once daily. (Patient not taking: Reportedon 07/24/2020 ) hydrOXYzine pamoate (VISTARIL) 50 mg capsule Take 1 capsule by mouth three times daily as needed. (Patient not taking: Reported on 07/24/2020 ) No current facility-administered medications on file prior to visit. Social History Social History Tobacco Use Smoking status: Current Every Day Smoker Packs/day: 1.00 Years: 15.00 Pack years: 15.00 Types: Cigarettes Smokeless tobacco: Never Used Tobacco comment: Occasional cigar Substance Use Topics Alcohol use: No Drug use: No Review of Symptoms REVIEW OF SYSTEMS See HPI EXAM: BP 122/72 Pulse 78 Resp 16 Wt 113.8 kg (250 lb 12.8 oz) SpO2 97% BMI 38.13 kg/m General Appearance: Well appearing, alert, in no acute distress, well-hydrated, well nourished.. Skin: Large tender keloid at 6 o'clock of his umbilicus which is very tender to palpation. Faint erythema around umbilicus which is possible cellulitis. Moderate amount of rust colored discharge coming from umbilicus/keloid. No fluctuance noted. Abdomen: Abdomen soft, mildly TTP around keloid scar and umbilicus. Health Maintenance List DTAP,TDAP,TD(1 - Tdap) Never done ONE PNEUMOVAX PRIOR TO AGE 65 Never done COLORECTAL CANCER SCREENING due on 11/12/2018 COVID-19 VACCINE(3 - Booster for Pfizer series) due on 12/04/2020 INFLUENZA(Season Ended) due on 10/23/2021 LIPID SCREEN due on 05/06/2023 HEPATITIS C SCREENING Completed HIV SCREENING Completed MENINGOCOCCAL CONJUGATE Aged Out ASSESSMENT/PLAN: 1. Abscess of skin of abdomen - ICD9: 682.2, ICD10: L02.211 (primary diagnosis) - Continue treatment with Clindamycin - Will refer to general surgery and try to schedule appointment in the next 24 hours to complete I&D of this possible abscess. Red flags for re-assessment reviewed with patient in detail. F/u PRNwith office depending on their findings. - CONSULT TO GENERAL SURGERY - WOUND CULTURE AND GRAM STAIN 2. Periumbilical abdominal pain - ICD9: 789.05, ICD10: R10.33 Improved with drainage today. See above. Continue [place] PRN for pain. - CONSULT TO GENERAL SURGERY - WOUND CULTURE AND GRAM STAIN 3. Keloid scar - ICD9: 701.4, ICD10: L91.0 Patient requesting referral to dermatology to look into management/reduction of this keloid. Discussed intralesional steroids at prior OV. - CONSULT TO DERMATOLOGY Samuel Pressley MD [facility] History of Present illness Narrative* Samuel Pressley MD - 07/12/2021 10:42 AM EDT Chief Complaint Patient presents with: ED Follow-up: Mid abdomen pain x3 days HPI Sherif Bonilla is a 36 year old male who presents here today for ER Follow Up. Records not available at today's appointment. Patient states that he has been in the ED twice in the last 3-4 days. About 4 days ago he developedpain around his umbilicus without redness or swelling and went in to [facility] ED where theyobtained a CT scan, urine studies and blood work which was reportedly all negative. Returned to theED this morning because he had worsening pain with new red ring around his umbilicus. States they cleaned inside his belly button and then gave him a dose of clindamycin for cellulitis and prescribedsent him home with rx for clindamycin which he has not taken yet. States that he continues to have pain around and inside his umbilicus described as throbbing/burning pain. Has not improved at all since he was evaluated in the ED early this morning. Has chronic diarrhea from IBS which is unchanged. Denies fever/chills, nausea, vomiting, constipation, hematchezia,melena. Similar pain evaluated in UC 1 year ago which was caused by his keloid scar and treated with wound care/irrigation. Past medical history, appointments, medications, allergies reviewed. Previous Medical History PAST MEDICAL HISTORY Diagnosis Date Anxiety Colon polyp Dysthymic disorder Depression (non-psychotic) Irritable bowel syndrome Irritable bowel Obesity (BMI 30-39.9) Tobacco use Previous Surgical History PAST SURGICAL HISTORY Procedure Laterality Date COLONOSCOP W/ OR W/O [facility] SPEC 2009 Colonoscopy COLONOSCOP W/ OR W/O [facility] SPEC 11/13/2015 Colonoscopy (MAC), tubular adenoma. repeat in 3 years EGD W/O OR W/BRUSH/WASH 11/13/15 EGD (MAC) LAP CHOLECYSTECT/CHOLANGIOGRAPHY 03-10-13 PAST SURGICAL HISTORY OF mole removal, back VASECTOMY 03/20/09 Family History FAMILY HISTORY Problem Relation Age of Onset Psychiatry Mother Depression Diabetes Mother other (Other) Father ETOH Psychiatry Maternal Grandmother depression Breast Cancer Maternal Grandmother other (stills disease) Maternal Grandmother Diabetes Maternal Grandfather Cancer Maternal Grandfather leukemia Ischemic Heart Disease Paternal Grandfather Fatal NH age 37 Psychiatry Sister anxiety/panic Patient Allergies ALLERGIES Allergen Reactions Doxycycline Other: See Comments Skin starts dying Keflex [Cephalexin] Other: See Comments Caused fingers to start turning black-uncertain if Keflex but they are pretty sure Morphine Penicillins Prednisone Hives Current Medications Current Outpatient Medications on File Prior to Visit Medication Sig Ipratropium (ATROVENT) 17 mcg/actuation inhaler Inhale 2 Puffs as instructed every 6 hours. (Patient not taking: Reported on 07/24/2020 ) Fqadqgmebglxbtx-Ldxqupaxt-PN (BROMFED DM) 2-30-10 mg/5 mL syrup Take 10 mL by mouth four times daily as needed. (Patient not taking: Reported on 07/24/2020 ) oxymetazoline (AFRIN, OXYMETAZOLINE,) 0.05 % nasal spray Use 2 Sprays in the nose twice daily. (Patient not taking: Reported on 07/24/2020 ) FLUoxetine (PROZAC) 40 mg capsule Take 1 capsule by mouth once daily. (Patient not taking: Reportedon 07/24/2020 ) hydrOXYzine pamoate (VISTARIL) 50 mg capsule Take 1 capsule by mouth three times daily as needed. (Patient not taking: Reported on 07/24/2020 ) No current facility-administered medications on file prior to visit. Social History Social History Tobacco Use Smoking status: Current Every Day Smoker Packs/day: 1.00 Years: 15.00 Pack years: 15.00 Types: Cigarettes Smokeless tobacco: Never Used Tobacco comment: Occasional cigar Substance Use Topics Alcohol use: No Drug use: No Review of Symptoms REVIEW OF SYSTEMS See HPI EXAM: BP 126/94 Pulse 77 Temp 36.2 C (97.2 F) Resp 18 Wt 113.7 kg (250 lb 9.6 oz) SpO2 97% BMI 38.10 kg/m General Appearance: Well appearing, alert, in no acute distress, well-hydrated, well nourished.. Skin: Large tender keloid at 6 o'clock of his umbilicus which is very tender to palpation. Faint erythema around umbilicus which is possible cellulitis. No purulent drainage/discharge or bleeding. Abdomen: Abdomen soft, non-tender. Bowel sounds normal. No masses, organomegaly. Health Maintenance List DTAP,TDAP,TD(1 - Tdap) Never done ONE PNEUMOVAX PRIOR TO AGE 65 Never done COLORECTAL CANCER SCREENING due on 11/12/2018 COVID-19 VACCINE(3 - Booster for Pfizer series) due on 12/04/2020 INFLUENZA(Season Ended) due on 10/23/2021 LIPID SCREEN due on 05/06/2023 HEPATITIS C SCREENING Completed HIV SCREENING Completed MENINGOCOCCAL CONJUGATE Aged Out ASSESSMENT/PLAN: 1. Keloid scar - ICD9: 701.4, ICD10: L91.0 (primary diagnosis) Inflammation/irritation/infection of keloid scar causing pain. Will have him finish out rx for clindamycin and call with red flag symptoms as discussed. Advised to keep area clean and may apply triple abx ointment to umbilicus for any irritation/discharge. 2. Periumbilical abdominal pain - ICD9: 789.05, ICD10: R10.33 See above. 3. Cellulitis of skin - ICD9: 682.9, ICD10: L03.90 - Continue treatment with Clindamycin - No lymphangetic streaking, this was defined for patient to watch for and to seek medical care immediately if appears - Follow up for recheck in 2-3 days if not improving Samuel Pressley MD documented [facility] Hospital Discharge instructions Patient Education 07/12/2021 00:47:14 Cellulitis Skin Infection Cellulitis Cellulitis is an infection of the deep layers of skin. A break in the skin, such as a cut or scratch, can let bacteria under the skin. If the bacteria get to deep layers of the skin, it can be serious. If not treated, cellulitis can get into the bloodstream and lymph nodes. The infection can then spread throughout the body. This causes serious illness. Cellulitis causes the affected skin to become red, swollen, warm, and sore. The reddened areas havea visible border. An open sore may leak fluid (pus). You may have a fever, chills, and pain. Cellulitis is treated with antibiotics taken for 7 to 10 days. An open sore may be cleaned and covered with cool wet gauze. Symptoms should get better 1 to 2 days after treatment is started. Make sure to take all the antibiotics for the full number of days until they are gone. Keep taking the medicine even if your symptoms go away. Home care Follow these tips: Limit the use of the part of your body with cellulitis. If the infection is on your leg, keep your leg raised while sitting. This will help to reduce swelling. Take all of the antibiotic medicine exactly as directed until it is gone. Do not miss any doses, especially during the first 7 days. Don t stop taking the medicine when your symptoms get better. Keep the affected area clean and dry. Wash your hands with soap and warm water before and after touching your skin. Anyone else who touches your skin should also wash his or her hands. Don't share towels. Follow-up care Follow up with your healthcare provider, or as advised. If your infection does not go away on the first antibiotic, your healthcare provider will prescribe a different one. When to seek medical advice Call your healthcare provider right away if any of these occur: Red areas that spread Swelling or pain that gets worse Fluid leaking from the skin (pus) Fever higher of 100.4 F (38.0 C) or higher after 2 days on antibiotics [id number] [employer]. [address] [place] [address]. All rights reserved. This information is not intended as a substitute for professional medical care. Always follow yourhealthcare professional's instructions. Follow Up Care 07/12/2021 00:27:29 With:Call Physician Referral Address:Unknown When:2-4 days With:Follow up with primary care provider Address:Unknown When:2-4 days [facility] 05-19-2022 Hospital Discharge instructions Patient Education 07/10/2021 07:43:08 Abdominal Pain Abdominal Pain Abdominal pain is pain in the stomach or belly area. Everyone has this pain from time to time. In many cases it goes away on its own. But abdominal pain can sometimes be due to a serious problem, such as appendicitis. So it s important to know when to get help. Causes of abdominal pain There are many possible causes of abdominal pain. Common causes in adults include: Constipation, diarrhea, or gas Stomach acid flowing back up into the esophagus (acid reflux or heartburn) Severe acid reflux, called GERD (gastroesophageal reflux disease) A sore in the lining of the stomach or small intestine (peptic ulcer) Inflammation of the gallbladder, liver, or pancreas Gallstones or kidney stones Appendicitis Intestinal blockage An internal organ pushing through a muscle or other tissue (hernia) Urinary tract infections In women, menstrual cramps, fibroids, ovarian cysts, pelvic inflammatory disease, or endometriosis Inflammation or infection of the intestines, including Crohn's disease and ulcerative colitis Irritable bowel syndrome Diagnosing the cause of abdominal pain Your healthcare provider will give you a physical exam help find the cause of your pain. If needed,you will have tests. Belly pain has many possible causes. So it can be hard to find the reason for your pain. Giving details about your pain can help. Tell your provider where and when you feel the pain, and what makes it better or worse. Also let your provider know if you have other symptoms such as: Fever Tiredness Upset stomach (nausea) Vomiting Changes in bathroom habits Blood in the stool or black, tarry stool Weight loss that you can't explain (involuntary weight loss?) Also report any family history of stomach or intestinal problems, or cancers. Tell your provider about all your alcohol use and drug use. Tell your provider about all medicines you use, including herbs, vitamins, and supplements. Treating abdominal pain Some causes of pain need emergency medical treatment right away. These include appendicitis or a bowel blockage. Other problems can be treated with rest, fluids, or medicines. Your healthcare provider can give you specific instructions for treatment or self-care based on what is causing your pain. If you have vomiting or diarrhea, sip water or other clear fluids. When you are ready to eat solid foods again, start with small amounts of qywp-eb-ibpyai, low- fat foods. These include apple sauce, toast, or crackers. When to get medical care Call 911 or go to the hospital right away if you: Can t pass stool and are vomiting Are vomiting blood or have bloody diarrhea or black, tarry diarrhea Have chest, neck, or shoulder pain Feel like you might pass out Have pain in your shoulder blades with nausea Have sudden, severe belly pain Have new, severe pain unlike any you have felt before Have a belly that is rigid, hard, and hurts to touch Call your healthcare provider if you have: Pain for more than 5 days Bloating for more than 2 days Diarrhea for more than 5 days A fever of 100.4 F (38 C) or higher, or as directed by your healthcare provider Pain that gets worse Weight loss for no reason Continued lack of appetite Blood in your stool How to prevent abdominal pain Here are some tips to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
[2023-04-18] MEDS: fentaNYL 100 MCG/2 ML Ampul 50 MCG IM (20:49)
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
[2023-04-18] MEDS: Orphenadrine 60 MG/2 ML Ampul IM (20:50)
[2023-04-18 21:22] VITALS: BP 156/54; PULSE 71; RESP 14; TEMP 36.6; O2SAT 100
== END 2023-04-18 21:24 | disposition home or self-care (01) ==
PROVIDERS: Emergency Provider Emergency Medicine; PCP Family Medicine; Visit Provider Emergency Medicine
DX: M54.50 Low back pain, unspecified (principal); G89.29 Other chronic pain; F17.290 Nicotine dependence, other tobacco product, uncomplicated; Z79.899 Other long term (current) drug therapy
CPT/HCPCS: 72100; 99282